=== PATIENT | female | born 1945 | race Caucasian/White ===

== ENCOUNTER 2020-06-15 09:00 | Emergency (ER) | payer MEDICARE, SELFPAY ==
[2020-06-15 09:00] VITALS: BP 127/81; PULSE 63; RESP 22; TEMP 36.5; O2SAT 90; BMI 26.9
[2020-06-15 09:20] VITALS: O2SAT 92
--- NOTE | 2020-06-15 09:21 | EKG12_ITS ---
Test Reason : SOB Blood Pressure : / mmHG Vent. Rate : 063 BPM Atrial Rate : 063 BPM P-R Int : 148 ms QRS Dur : 082 ms QT Int : 420 ms P-R-T Axes : 050 058 032 degrees QTc Int : 429 ms Normal sinus rhythm Normal ECG Confirmed by JULY DRUMMOND, WHIT ([id number]), medical transcription editor KAE FULTON ([id number]) on 06/23/2020 10:18:44 AM Referred By: SALLY Confirmed By:WHIT MCDOWELL MD
--- NOTE | 2020-06-15 09:26 | ED.VIS.GEN ---
History of Present Illness Chief Complaint: Shortness of Breath Informant: Patient Narrative: 74-year-old female with past medical history of hypertension and hypothyroidism presents with concern for worsening shortness of breath. Patient was diagnosed with Covid 7 days ago. Began having symptoms 8 days ago. States over the past 2 days she has had worsening shortness of breath. Denies any chest pain, nausea, vomiting, diaphoresis. Patient is a longtime smoker but quit approximately 1 week ago. Past Medical History - Allergies and Home Meds Allergies/Adverse Reactions: Allergies No Known Allergies Allergy (Verified 06/15/20 09:02) Primary Care Physician: Care Physician,No Primary [NON-STAFF] - Prior records reviewed: Yes Past Medical History: - - HTN and hypothyroidism Surgical History: noncontributory Lives: Spouse/ Significant Other Smoking Status: Current every day smoker Alcohol: None Drugs: None Review of Systems General: Reports: Malaise. Denies: Chills, Fever, Sweats Eyes: Denies: Visual changes - bilaterally, Diplopia ENT: Denies: Rhinorrhea, Sore throat Cardiovascular: Denies: Chest pain, Palpitations Respiratory: Reports: Dyspnea, Cough. Denies: Dyspnea on exertion Gastrointestinal: Denies: Abdominal pain, Nausea, Vomiting, Diarrhea, Melena, Hematochezia Genitourinary: Denies: Dysuria, Hematuria, Frequency Musculoskeletal: Denies: Back pain, Extremity Pain Skin: Denies: Rash, Wounds Neurological: Denies: Headache, Weakness, Numbness Physical Exam Vital Signs/Narrative: Vital Signs Temp Pulse Resp BP Pulse Ox 06/15/20 09:00 97.7 F L 63 22 H 127/81 H 90 Inital Vital Signs reviewed: Yes General: Well nourished, Well developed, No Acute Distress Head: Normocephalic, Atraumatic Eyes: Perrl, EOMI ENT: Moist mucous membranes, No rhinorrhea Neck: Supple, Nontender Cardiovascular: Regular rate, Regular rhythm, No murmurs Respiratory: No distress, CTA bilaterally, Chest nontender Abdomen: Soft, Nontender, Nondistended, Normal bowel sounds Back: Nontender, Normal Inspection Extremities: Nontender, No edema Skin: Normal color, No rash Neurological: Alert, Oriented x3, Cranial nerves II-XII grossly intact, Normal Strength, Normal Sensation Psychological: Normal affect, Normal Mood Diagnostic/Tx/Re-eval Chest X-Ray - ED: 1 View, Read by ED Physician, Read by Radiologist, - - Bilateral infiltrates worse on the right. - Rhythm Strip Rhythm Strip: Sinus Rhythm Rate: 63 Ectopy: None - EKG Initial EKG Interpretation: Sinus Rhythm - Normal sinus rhythm at 63 bpm. NM interval 148 ms. QTC of 429 ms. No evidence of ST elevation or depression at this time. - Medical Decision Making Patient appears well and nontoxic. SPO2 of approximately 92-94 at rest. When patient is ambulated she desaturates to 87%. Placed on 2 L nasal cannula. Patient feeling much improved. CRP is elevated. Patient has known Covid. Troponin negative with a nonischemic EKG. Chest x-ray interpreted by myself shows bilateral infiltrates. Radiology concurs. Patient given Decadron in the emergency department. Patient will be given home oxygen at 2 L. Asked to follow-up with her primary care provider. Asked to return for new or worsening symptoms. Patient agreeable and discharged home in stable condition. Impression: 1. COVID 19 2. Hypoxemia ED Disposition - Plan for ED Patient: Disposition: Home or Assisted Living Instructions: Coronavirus Disease 2019 (COVID-19): Overview Prescriptions: Dexamethasone [Decadron] 6 mg PO DAILY 7 Days #7 tab Prescription Printed Referrals: Paulette Grimes MD [Primary Care Provider] - 2 Days
[2020-06-15 09:50] LABS: Absolute Neutrophil Count 4.3 X10^3/uL (2.0-7.7); Basophil# 0.01 X10^3/uL; Basophil% 0.2 % (0-1); Hematocrit 39.9 % (37-47); Hemoglobin 13.7 g/dL (12.0-15.0); Lymphocyte % 7.9 % (19-41); Mean Corp Hgb Conc 34.3 g/dL (32-36); Mean Corpuscular Hgb 29.6 pg (27.0-32.0); Mean Corpuscular Volume 86.2 fL (81-99); Mean Platelet Vol. 10.8 fl (6.2-12.0); Monocyte% 7.9 % (0-10); NRBC Flagged by Analyzer 0 % (0-5); Neutrophil # 4.26 X10^3/uL (2.7-7.7); Neutrophil % 83.8 % (47-70); POSITIVE DIFFERENTIAL YES; Platelet Count 222 K/mm3 (150-450); RBC Distribution Width CV 13.5 % (11.6-14.6); RBC Distribution Width SD 42.6 fl (35.1-43.9); Red Blood Count 4.63 M/mm3 (4.2-5.4); White Blood Count 5.1 K/mm3 (4.4-11.0)
--- NOTE | 2020-06-15 09:50 | RAD_ITS ---
STUDY: X-RAY CHEST REASON FOR EXAM: Female, 74 years old. INCREASED SOB. PATIENT WAS DIAGNOSES WITH COVID LAST WEEK. TECHNIQUE: Single AP portable view of the chest. COMPARISON: None. FINDINGS: EKG electrodes are seen. There is evidence of a patchy infiltrates in the peripheral distribution more prominent on the right side. This involves both the upper and lower lobes. Follow-up is recommended. There is no demonstrated pleural abnormality. Normal size heart. Normal mediastinum and greta. Normal visualized pulmonary arteries. There is atherosclerotic tortuosity of the aortic arch and descending thoracic aorta. There are diffuse degenerative changes of the visualized thoracic spine. Normal visualized ribs, clavicles, and shoulders. There is no demonstrated abnormality of the visualized soft tissue structures of the upper abdomen. RAD/Chest 1 View (Portable) IMPRESSION: Bilateral patchy infiltrates in a peripheral distribution worse on the right side. Follow-up is recommended. Electronically Signed: Oswaldo Laws, at 10:19 EST , Service support ,
[2020-06-15 09:51] LABS: Differential Indicated SCAN CRITERIA MET
[2020-06-15 10:09] LABS: ALB/GLOB Ratio 0.8 RATIO (0.9-2.4); AST(SGOT) 50 U/L (15-37); Alanine Aminotransfer ALT/SGPT 25 U/L (13-56); Alkaline Phosphatase 60 U/L (45-117); Anion Gap 7 (5-15); BUN 9 mg/dL (7-18); BUN/Creat Ratio 13.1 RATIO (10-20); Calcium,Total 8.3 mg/dL (8.5-10.1); Chloride 108 mmol/L (98-107); Creatinine, Serum 0.68 mg/dL (0.55-1.02); EST Glomerular Filtration Rate 89 mL/min (>60); Est Glom Filt Rate - Afr Amer 107 mL/min (>60); Estimated Creatinine Clearance 34.91 ml/min; Globulin 3.9 g/dL (2.2-4.2); Glucose 121 mg/dL (74-106); Protein, Total 6.9 g/dL (6.4-8.2); Sodium Level 138 mmol/L (136-145)
[2020-06-15 11:21] VITALS: O2SAT 91
--- NOTE | 2020-06-15 11:50 | CM.ED ---
Social Work Consult: Home Oxygen Informant: Dr. Damian Telephone call to patient room. Patient agreeable to have home oxygen set up through [facility] and educated to contact [facility] when patient discharges. Order faxed to [facility]. Telephone call to [facility] to update on patient discharge to home with oxygen. Delivery personal on stand-by for patient phone call. PLAN: Discharge to home with oxygen. Isis CHRISTIAN, REYNALDO
[2020-06-15] MEDS: dexAMETHasone 10 MG/ML Vial 6 MG IV (12:06)
[2020-06-15 12:07] VITALS: PULSE 65; PULSE 67; RESP 17; RESP 18; O2SAT 96
--- NOTE | 2020-06-16 15:50 | CASEMGMT ---
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 MERRY OKEEFE inquired of pt how she has been doing. She states, I'm not doing very good even with the oxygen on. Pt reports that even at rest she can barely keep my oxygen level up to 90% and states currently it is 87%. She also reports that with ambulation, it drops down to as low as 70%. She states her did have someone picker/puller the Decadron today and she has taken that. MERRY OKEEFE strongly advised pt to return to the ER to be re-evaluated and explained to pt that oxygen level is dangerously low and concerns of resp distress. Pt asked this RN MALDONADO if she could wait until tomorrow to come return to the ER and also stated, I don't want to have to get admitted. MERRY OKEEFE strongly advised pt to come to ER today and informed pt to discuss her concerns about admission with the ER doctor. Pt voices understanding. Meka BURGESS RN, CM
--- NOTE | 2020-06-17 13:22 | CASEMGMT ---
MERRY OKEEFE COVID follow-up: Call placed to pt at this time. Pt states she is about the same as yesterday. She states she did not go to the ER last evening. She reports that she continues to have difficulty keeping up my oxygen level, stating it has mostly been maintaining around 89-90% with O2 @ 2 L/M @ rest and states still gets really SOB when walking. She states she is not sure how low the oxygen level has been going today while ambulating. Pt states, It's no worse today than yesterday. Pt voices she is afraid and feeling frustrated. Pt had several questions about treatment options and inquires can't they just give some kind of antibiotic therapy. Upon further discussion, pt clarifies wants to know about treatment w/antibodies. MERRY OKEEFE answered pt's questions and explained that Convalescent plasma and anti-viral tx of Remdesivir may be treatment options for those who qualify for them but these are done only as an In-patient and that she would need to be re-evaluated in ER and further discussion about options of treatment could be discussed at that time. She states her is home w/her. She states he also was ill w/COVID but he is starting to improve. MERRY OKEEFE advised pt again to return to the ER for further evaluation d/t on-going SOB. Pt states she is not sure what she is going to do yet, but appreciates MERRY OKEEFE calling to check on her. Pt was also advised to contact her PCP for f/u appt. She states she thinks he may be on vacation, but she is not sure. MERRY OKEEFE encouraged her to call the office, as they most likely will have someone covering for her PCP if so. Meka BURGESS RN, CM
== END 2020-06-15 12:39 | disposition home or self-care (01) ==
PROVIDERS: Emergency Provider Emergency Medicine; PCP Internal Medicine
DX: U07.1 COVID-19 (principal); R09.02 Hypoxemia; I10 Essential (primary) hypertension; E03.9 Hypothyroidism, unspecified; Z79.82 Long term (current) use of aspirin; Z79.899 Other long term (current) drug therapy; Z87.891 Personal history of nicotine dependence
CPT/HCPCS: 71045; 80053; 84484; 85025; 86140; 93005; 96374; 99284

== ENCOUNTER 2020-06-17 14:57 | Inpatient (IN) | payer MEDICARE, SELFPAY ==
[2020-06-17] VITALS (12 sets, daily range): BP systolic 101–136; BP diastolic 58–76; PULSE 63–70; RESP 18–32; TEMP 36.6–37.1; O2SAT 85–96; BMI 26.9; BMI 17.0; BMI 26.2
--- NOTE | 2020-06-17 15:27 | EKG12_ITS ---
Test Reason : DYSRHYTHMIA Blood Pressure : / mmHG Vent. Rate : 067 BPM Atrial Rate : 067 BPM P-R Int : 106 ms QRS Dur : 082 ms QT Int : 418 ms P-R-T Axes : -06 052 023 degrees QTc Int : 441 ms Sinus rhythm with short OH Otherwise normal ECG Confirmed by JULY DRUMMOND, WHIT ([id number]), film and video editor KAE FULTON ([id number]) on 06/23/2020 9:46:47 A M Referred By: CHRISTOS Confirmed By:WHIT MCDOWELL MD
--- NOTE | 2020-06-17 15:28 | ED.DCSUM_ITS ---
History of Present Illness Chief Complaint: Shortness of Breath Informant: Patient Onset: Days - 9 Narrative: Covid +9 days ago with onset of fever at that time. had symptoms the day prior. History of COPD with tobacco history, she states she stopped smoking when symptoms started. No fever for the past 4 to 5 days. Cough with mild sputum since then. Increasing dyspnea. She was seen 2 days ago in the ED evaluated, sent home per protocol with oxygen therapy and steroids. Symptoms have worsened since then. Denies chest pains or abdominal pain. States dyspnea is worse. EMS was contacted, reported pulse ox in the 80s on her 2 L she is currently on 5 L. She denies any respiratory distress. She did take her Decadron today. Denies any loss of taste or smell, states had mild diarrhea. Prior similar symptoms: Yes Past Medical History - Allergies and Home Meds Allergies/Adverse Reactions: Allergies No Known Allergies Allergy (Verified 06/17/20 15:05) Primary Care Physician: Paulette Grimes MD [Primary Care Provider] - Past Medical History: - - Hypertension, COPD, hyperlipidemia, hypothyroidism Surgical History: noncontributory Smoking Status: Former smoker Review of Systems General: Denies: Chills, Fever, Sweats Eyes: Denies: Visual changes - bilaterally, Diplopia ENT: Denies: Rhinorrhea, Sore throat Cardiovascular: Denies: Chest pain, Palpitations Respiratory: Reports: Dyspnea, Cough. Denies: Dyspnea on exertion Gastrointestinal: Denies: Abdominal pain, Nausea, Vomiting, Diarrhea, Melena, Hematochezia Genitourinary: Denies: Dysuria, Hematuria, Frequency Musculoskeletal: Denies: Back pain, Extremity Pain Skin: Denies: Rash, Wounds Neurological: Denies: Headache, Weakness, Numbness Physical Exam Vital Signs/Narrative: Vital Signs Temp Pulse Resp BP Pulse Ox 06/17/20 15:01 98 F 70 18 136/70 H 85 06/17/20 14:58 98 F 70 18 136/70 H 85 Inital Vital Signs reviewed: Yes General: Well nourished, Well developed, No Acute Distress, - - Currently on 5 L nasal cannula. Head: Normocephalic, Atraumatic Eyes: Perrl, EOMI ENT: Moist mucous membranes, No rhinorrhea Neck: Supple, Nontender Cardiovascular: Regular rate, Regular rhythm, No murmurs Respiratory: No distress, CTA bilaterally, Chest nontender. Negative for: Retractions Abdomen: Soft, Nontender, Nondistended, Normal bowel sounds Back: Nontender, Normal Inspection Extremities: Nontender, No edema Skin: Normal color, No rash Neurological: Alert, Oriented x3, Cranial nerves II-XII grossly intact, Normal Strength, Normal Sensation Psychological: Normal affect, Normal Mood Diagnostic/Tx/Re-eval Clinical Impression(s) from Imaging Studies Chest X-Ray 06/17/20 16:00 IMPRESSION: Stable bilateral hazy opacities suspicious for pneumonia. Consider typical and atypical etiologies. Electronically Signed: Annette Ford MD at 16:42 EST Tel , Service support , Abnormal Lab Results 06/17/20 06/17/20 06/17/20 15:45 15:45 15:45 WBC 6.1 RBC 4.86 Hgb 14.0 Hct 42.1 MCV 86.6 MCH 28.8 MCHC 33.3 RDW Std Deviation 42.3 RDW Coeff of Silvano 13.4 Plt Count 272 MPV 9.2 Immature Gran % (Auto) 0.700 Neut % (Auto) 80.0 H Lymph % (Auto) 10.9 L Hutchinson % (Auto) 7.9 Eos % (Auto) 0.2 Baso % (Auto) 0.3 Absolute Neuts (auto) 4.8 Absolute Lymphs (auto) 0.66 L Nucleated RBC % 0 PT 13.4 INR 1.1 APTT 25.3 D-Dimer Quant (PE/DVT) Specimen Type Sample Site pH Bicarbonate Actual Total CO2 Base Excess O2 Saturation ABG pCO2 ABG pO2 Mauri Test O2 Delivery Device Liter Flow Sodium 140 Potassium 3.6 Chloride 107 Carbon Dioxide 25.0 Anion Gap 8 BUN 15 Creatinine 0.64 Estim Creat Clear Calc 34.91 Est GFR (MDRD) Af Amer 116 Est GFR (MDRD) Non-Af 96 BUN/Creatinine Ratio 23.4 H Glucose 102 Calcium 8.8 Total Bilirubin 0.70 AST 33 ALT 27 Alkaline Phosphatase 66 C-React Prot Ext Range 63.50 H Total Protein 7.0 Albumin 2.9 L Globulin 4.1 Albumin/Globulin Ratio 0.7 L 06/17/20 06/17/20 15:45 16:31 WBC RBC Hgb Hct MCV MCH MCHC RDW Std Deviation RDW Coeff of Silvano Plt Count MPV Immature Gran % (Auto) Neut % (Auto) Lymph % (Auto) Hutchinson % (Auto) Eos % (Auto) Baso % (Auto) Absolute Neuts (auto) Absolute Lymphs (auto) Nucleated RBC % PT INR APTT D-Dimer Quant (PE/DVT) 1.50 H* Specimen Type ART Sample Site R Radial pH 7.46 H Bicarbonate Actual 23.1 Total CO2 24 Base Excess -1 O2 Saturation 97 ABG pCO2 32.8 L ABG pO2 86 Mauri Test Positive O2 Delivery Device Cannula Liter Flow 5.0 Sodium Potassium Chloride Carbon Dioxide Anion Gap BUN Creatinine Estim Creat Clear Calc Est GFR (MDRD) Af Amer Est GFR (MDRD) Non-Af BUN/Creatinine Ratio Glucose Calcium Total Bilirubin AST ALT Alkaline Phosphatase C-React Prot Ext Range Total Protein Albumin Globulin Albumin/Globulin Ratio - Medical Decision Making Patient currently on 5 L of oxygen no respiratory distress. Positive Covid 9 days ago. Seen 2 days ago failing outpatient home therapy with oxygen. She took her steroid Decadron today. Work-up initiated stable labs, chest x-ray notes similar changes with Covid pneumonia 2 days ago. I spoke with hospitalist Dr. Caldera for admission for further management. D-dimer was obtained and eleva yusuf, CT scan ordered and pending for the floor. Discussed will hold antibiotics at this time due to Covid pneumonia. ED Disposition - Plan for ED Patient: Disposition: [facility] Diagnosis: COVID-19 virus infection, Hypoxemia Referrals: Paulette Grimes MD [Primary Care Provider] -
[2020-06-17 15:53] LABS: Absolute Lymphocyte Count 0.66 X10^3/uL (0.83-4.51); Absolute Neutrophil Count 4.8 X10^3/uL (2.0-7.7); Basophil# 0.02 X10^3/uL; Basophil% 0.3 % (0-1); Eosinophil# 0.01 X10^3/uL; Eosinophils% 0.2 % (0-5); Hematocrit 42.1 % (37-47); Lymphocyte # 0.66 X10^3/ul (4.0); Lymphocyte % 10.9 % (19-41); Mean Corp Hgb Conc 33.3 g/dL (32-36); Mean Corpuscular Hgb 28.8 pg (27.0-32.0); Mean Corpuscular Volume 86.6 fL (81-99); Mean Platelet Vol. 9.2 fl (6.2-12.0); Monocyte# 0.48 X10^3/uL; Monocyte% 7.9 % (0-10); NRBC Flagged by Analyzer 0 % (0-5); Neutrophil # 4.84 X10^3/uL (2.7-7.7); Platelet Count 272 K/mm3 (150-450); RBC Distribution Width CV 13.4 % (11.6-14.6); RBC Distribution Width SD 42.3 fl (35.1-43.9); Red Blood Count 4.86 M/mm3 (4.2-5.4); White Blood Count 6.1 K/mm3 (4.4-11.0)
--- NOTE | 2020-06-17 16:00 | RAD_ITS ---
STUDY: X-RAY CHEST REASON FOR EXAM: Female, 74 years old. SOB. COVID POSITIVE LAST SUNDAY. TECHNIQUE: Single AP portable view of the chest. COMPARISON: 06/15/2020. FINDINGS: No pleural effusion. Moderate hazy opacities in the lungs bilaterally. Mild interstitial prominence in the lung bases. No significant change from the prior study. Normal size heart. Normal mediastinum and greta. Normal visualized pulmonary arteries. Normal visualized aortic arch and descending thoracic aorta. Normal visualized thoracic spine. Normal visualized ribs, clavicles, and shoulders. There is no demonstrated abnormality of the visualized soft tissue structures of the upper abdomen. RAD/Chest 1 View (Portable) IMPRESSION: Stable bilateral hazy opacities suspicious for pneumonia. Consider typical and atypical etiologies. Electronically Signed: Annette Ford MD at 16:42 EST Tel , Service support ,
[2020-06-17 16:07] LABS: International Normalized Ratio 1.1; Partial Thromboplast Time 25.3 Seconds (24.1-36.2); Prothrombin Time (Protime)PT. 13.4 SECONDS (11.7-14.9)
[2020-06-17 16:08] LABS: ALB/GLOB Ratio 0.7 RATIO (0.9-2.4); AST(SGOT) 33 U/L (15-37); Alanine Aminotransfer ALT/SGPT 27 U/L (13-56); Albumin, Serum 2.9 g/dL (3.2-5.0); Alkaline Phosphatase 66 U/L (45-117); Anion Gap 8 (5-15); BUN 15 mg/dL (7-18); BUN/Creat Ratio 23.4 RATIO (10-20); Calcium,Total 8.8 mg/dL (8.5-10.1); Chloride 107 mmol/L (98-107); Creatinine, Serum 0.64 mg/dL (0.55-1.02); EST Glomerular Filtration Rate 96 mL/min (>60); Est Glom Filt Rate - Afr Amer 116 mL/min (>60); Estimated Creatinine Clearance 34.91 ml/min; Globulin 4.1 g/dL (2.2-4.2); Glucose 102 mg/dL (74-106); Potassium 3.6 mmol/L (3.5-5.1); Sodium Level 140 mmol/L (136-145)
--- NOTE | 2020-06-17 16:26 | PCM.HP.STD ---
Problem List (1) Pneumonia due to COVID-19 virus Status: Acute (2) Hypoxemia Status: Acute (3) Suspected chronic obstructive pulmonary disease based on initial evaluation Status: Suspected (4) Tobacco use Status: Chronic (5) HTN (hypertension) Status: Chronic Qualifiers: Hypertension type: essential hypertension Qualified Code(s): I10 - Essential (primary) hypertension (6) HLD (hyperlipidemia) Status: Chronic Qualifiers: Hyperlipidemia type: unspecified Qualified Code(s): E78.5 - Hyperlipidemia, unspecified (7) Hypothyroidism Status: Chronic Qualifiers: Hypothyroidism type: unspecified Qualified Code(s): E03.9 - Hypothyroidism, unspecified History of Present Illness Date of Admission: 06/17/20 Chief Complaint: Fever, cough, dyspnea, mild diarrhea, body aches, malaise x 1.5 weeks The patient is a 74 y/o F w/ PMHx: Suspected underlying chronic COPD, Tobacco use, HTN, HLD, Hypothyroidism who presents to the [facility] ED on 06/17/20 with history of onset COVID type symptoms including fever, chills, body aches, diarrhea, cough and dyspnea with + COVID testing ~ 9 days prior with lessening diarrhea and resolution of her fever x 4-5 days; however, she notes her oxygenation has been steadily worsening with recent ED presentation 2 days prior with discharge on 2L NC as well as steroids but despite this she has worsened with oxygenation at home in the 80s on the 2L NC prompting ED return. She notes her is also ill but less severe and his symptoms started just prior to hers. Work-up in the ED included T 98, heart 70, BP 136/70, respiratory rate 18, initially 85% on 2 L nasal cannula with improvement to 94% on 5 L nasal cannula, CBC with WC 6.1, hemoglobin 14, platelet 272 with lymphopenia, coags with PT 13.4, INR 1.1, PTT 25.3, D-dimer requested and discussed with ED physician and returned 1.50 with CTPA obtained on route to [facility] floor, ABG with pH 7.46, PCO2 32.8, PO2 86 on 5 L nasal cannula, CMP not marked appearing, EKG with SR without acute evidence of ischemia, CXR with stable BL hazy opacities consistent with COVID PNA, CTPA as noted pending upon admission. Past Medical History Past Medical History (Chronic Problems): Chronic Problems Tobacco use (Chronic) HTN (hypertension) (Chronic) HLD (hyperlipidemia) (Chronic) Hypothyroidism (Chronic) Allergies No Known Allergies Allergy (Verified 06/17/20 15:05) Home Medications: Ambulatory Orders Medication Instructions Recorded Aspirin E.C. [Ecotrin] 325 mg PO DAILY@0800 02/08/17 Atenolol [Tenormin (beta candelaria)] 25 mg PO DAILY 02/08/17 Atorvastatin Calcium [Lipitor] 20 mg PO DAILY 02/08/17 Levothyroxine [Synthroid] 88 mcg PO DAILY 02/08/17 Dexamethasone [Decadron] 6 mg PO DAILY 7 Days #7 tab 06/15/20 Surgical History: - - Tonsillectomy, right ear mastoid surgery x2, D&C. 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 Tobacco Use: Cigarettes Alcohol: None Drugs: None - *Family History Maternal History Items: Heart Disease Paternal History Items: Diabetes Review of Systems Constitutional: Reports: Anorexia, Chills, Fever, Malaise, Weakness, Fatigue. Denies: Weight Change HEENT: Denies: Head Aches, Sinus Congestion, Sinus Drainage Cardiovascular: Denies: Chest Pain, Chest Pressure, Chest Tightness, Light Headedness, Orthopnea, Palpitations, Syncope Respiratory: Reports: Cough, Shortness of Breath, Shortness of breath at rest, Shortness of breath upon exertion. Denies: Sputum production, Wheezing Gastrointestinal: Reports: Diarrhea. Denies: Abdominal Pain, Nausea, Vomiting Genitourinary: Denies: Dysuria Musculoskeletal: Reports: Joint Pain, Muscle pain. Denies: Joint Tenderness Skin: Denies: Rash, Wounds Neurological: Denies: Numbness, Tingling, Focal weakness Psychiatric: Denies: Anxiety, Depression, Homicidal Ideations, Suicidal Ideations Hematologic/ Lymphatic: Denies: Easy Bruising, Easy Bleeding VTE Information - Inpt Only VTE Present on Admission: No VTE Mechan Device Prophylaxis: SCD's VTE Pharm Prophylaxis ordered?: Yes Patient Problems: Active and Suspected Problems COVID-19 virus infection (Acute) Hypoxemia (Acute) Subjective: Patient seated upright in the ED bed, fatigued and ill-appearing, no obvious distress. Objective: Physical Examination: General: awake, alert, oriented x 3 and cooperative, seated upright in the ED bed, fatigued and ill-appearing but no obvious distress. Skin: normal color, turgor, no icterus, cyanosis. HEENT: AT/NC, EOMI, PERRLA, dry MM, no carotid bruits or JVD noted. Lungs: Diminished breath sounds, greater bases, decreased effort but no obvious distress, no rales, ronchi or wheezing. Heart: Regular rate and rhythm; no gallop, rub audible. Abdomen: soft, thin habitus, NTTP, ND, mildly hyperactive BS, no HSM. Extremities: no cyanosis, clubbing, or edema. Neurological: patient awake, alert, oriented as noted; cognitive function intact; pupils equally reactive to light and accomodation; cranial nerves II-XII grossly normal, moving all 4 extremities, no focal deficits, strength moderately to severely globally decreased secondary to acute presentation. Psychiatric: affect appears fatigued, ill-appearing, no acute evidence of depressive or anxiety feelings. - Physical Exam Vitals/I&O's: Vital Signs Temp Pulse Resp BP Pulse Ox 98 F 64 20 H 125/76 H 95 06/17/20 16:01 06/17/20 16:01 06/17/20 16:01 06/17/20 16:01 06/17/20 16:01 Oxygen Flow Rate (L/min) 5 Oxygen Delivery Method Nasal Cannula Weight: 138 lb Body Mass Index (BMI) 26.9 Laboratory Results 06/17/20 15:45: WBC 6.1, RBC 4.86, Hgb 14.0, Hct 42.1, MCV 86.6, MCH 28.8, MCHC 33.3, RDW Std Deviation 42.3, RDW Coeff of Silvano 13.4, Plt Count 272, MPV 9.2, Immature Gran % (Auto) 0.700, Neut % (Auto) 80.0 H, Lymph % (Auto) 10.9 L, [place] % (Auto) 7.9, Eos % (Auto) 0.2, Baso % (Auto) 0.3, Absolute Neuts (auto) 4.8, Absolute Lymphs (auto) 0.66 L, Nucleated RBC % 0 06/17/20 15:45: PT 13.4, INR 1.1, APTT 25.3 06/17/20 15:45: Sodium 140, Potassium 3.6, Chloride 107, Carbon Dioxide 25.0, Anion Gap 8, BUN 15, Creatinine 0.64, Estim Creat Clear Calc 34.91, Est GFR (MDRD) Af Amer 116, Est GFR (MDRD) Non-Af 96, BUN/Creatinine Ratio 23.4 H, Glucose 102, Calcium 8.8, Total Bilirubin 0.70, AST 33, ALT 27, Alkaline Phosphatase 66, C-React Prot Ext Range 63.50 H, Total Protein 7.0, Albumin 2.9 L, Globulin 4.1, Albumin/Globulin Ratio 0.7 L Assessment/Plan All Active Problems COVID-19 virus infection (Acute) Hypoxemia (Acute) Pneumonia due to COVID-19 virus (Acute) The patient is a 74 y/o F w/ PMHx: Suspected underlying chronic COPD, Tobacco use, HTN, HLD, Hypothyroidism who presents to the [facility] ED on 06/17/20 with history of onset COVID type symptoms including fever, chills, body aches, diarrhea, cough and dyspnea with + COVID testing ~ 9 days prior with lessening diarrhea and resolution of her fever x 4-5 days; however, she notes her oxygenation has been steadily worsening. 1. Acute Hypoxia, Worsening secondary to Acute Bilateral Pneumonia secondary to Acute Viral Syndrome, COVID-19: Will admit to the COVID unit on telemetry, will maintain on oxygen with wean as tolerated to room air but do suspect likely need for increased oxygenation, continue PRN albuterol, HOB, IS parameters w/ pending sputum cultures, respiratory viral panel and urine antigens, will obtain procalcitonin, CRP, CPK, Ferritin, LDH, trend d-dimer and COVID panel labs per protocol, continue IV decadron, obtain T+S, request ID consultation for consideration remdesivir and convalescent plasma. If continues to worsen may require air Vo versus BiPAP as well as possible transition to the ICU and/or pulmonary consultation. CTPA pending upon admission. 2. Suspected underlying chronic COPD: Would benefit once resolved from close follow-up with pulmonary medicine, pulmonary function studies, in interim HOB, encourage IS, encourage tobacco cessation. 3. Hypertension: Continue home regimen including atenolol with hold parameters, PRN hydralazine. 4. Hyperlipidemia: Continue home statin regimen. 5. Hypothyroidism: Continue home synthroid regimen. 6. Tobacco Abuse: Encouraged cessation, inpatient consultation per RT, NR if desired. 7. DVT prophylaxis: SCDs, Lovenox. 8. CODE status: Given patient presentation, underlying pulmonary disease and tobacco use with worsening status, discussed CODE status at length including difference between FULL code, DNR-CCA and DNR-CC status. Following discussions about the differences in these status, requested Full Code status. She is amenable to attempts with airvo and BIPAP prior to intubation. Updated and discussed her status with her also. Advanced Care Planning Face to Face Time: 16 minutes. Inpatient E&M: 17431 Init Hosp L3 Procedures: 28677 Advncd Care Plan 30 Min
[2020-06-17 16:35] LABS: Allen Test Positive; Base Excess -1 mmol/L (-2 to +2); Bicarbonate 23.1 mmol/L (22-26); Blood Gas Specimen Type ART; O2 Delivery Device Cannula; PO2 86 mmHG (75-100); SITE R Radial; SO2 97 % (95-99); Total Carbon Dioxide 24 mmol/L; pCO2 32.8 mmHg (35-45); pH 7.46 (7.35-7.45)
--- NOTE | 2020-06-17 17:35 | CT_ITS ---
STUDY: CTA CHEST REASON FOR EXAM: Female, 74 years old. Hypoxia, + COVID last week, elevated D-dimer, former smoker, hypertension, COPD. RADIATION DOSAGE (If Supplied By Facility): CTDIvol = ( 5.86 ) mGy, DLP = ( 223.68 ) mGycm TECHNIQUE: The examination was performed with the intravenous administration of IV 75mL [id number]-370. Post-processing of the angiographic images was performed, with multiplanar reformation and 3D reconstruction. Individualized dose optimization techniques were used for this CT. COMPARISON: None. FINDINGS: The heart and pericardium are normal. The aorta is normal in caliber. No aneurysm or dissection. There is no mediastinal mass or adenopathy. There is no evidence of pulmonary embolus. There is no pleural effusion. Extensive bilateral groundglass opacity greater in the lung periphery. Visualized abdomen is unremarkable. There is no osseous abnormality. CT/CTA Chest W/WO Contrast IMPRESSION: 1. No pulmonary embolism or arterial dissection. 2. Diffuse groundglass opacities suspicious for Covid pneumonia. Electronically Signed: Annette Ford MD at 19:02 EST Tel , Service support ,
--- NOTE | 2020-06-17 18:17 | PCS.PANDOC ---
PANDEMIC DOCUMENTATION INITIATED: Date: 06/17/2020 Time: 1814
[2020-06-17 21:56] LABS: Ferritin 114 ng/mL (8-252); LDH 510 U/L (84-246); Magnesium 2.1 mg/dL (1.6-2.6)
[2020-06-17] MEDS: Ondansetron 4 MG/2 ML Vial IV (22:52)
[2020-06-17] MEDS: Enoxaparin 30 MG/0.3 ML Syringe SC (22:52)
[2020-06-17] MEDS: dexAMETHasone 10 MG/ML Vial 6 MG IV (22:53)
[2020-06-17] MEDS: Acetaminophen 325 MG Tablet 650 MG PO (22:53)
[2020-06-17] MEDS: MELATONIN 3 MG TABLET PO (22:59)
[2020-06-17 23:15] LABS: Procalcitonin < 0.01 ng/mL (0.00-0.09)
[2020-06-18] VITALS (18 sets, daily range): BP systolic 85–125; BP diastolic 48–87; PULSE 63–81; RESP 16–30; TEMP 36.6–37.1; O2SAT 90–96; BMI 25.7
[2020-06-18 07:13] LABS: Absolute Lymphocyte Count 0.41 X10^3/uL (0.83-4.51); Absolute Neutrophil Count 4.4 X10^3/uL (2.0-7.7); Hematocrit 40.4 % (37-47); Hemoglobin 13.1 g/dL (12.0-15.0); Lymphocyte # 0.41 X10^3/ul (4.0); Lymphocyte % 8.2 % (19-41); Mean Corp Hgb Conc 32.4 g/dL (32-36); Mean Corpuscular Hgb 28.3 pg (27.0-32.0); Mean Corpuscular Volume 87.3 fL (81-99); Mean Platelet Vol. 9.2 fl (6.2-12.0); Monocyte# 0.17 X10^3/uL; Monocyte% 3.4 % (0-10); NRBC Flagged by Analyzer 0 % (0-5); Neutrophil # 4.36 X10^3/uL (2.7-7.7); Neutrophil % 87.8 % (47-70); POSITIVE DIFFERENTIAL YES; Platelet Count 305 K/mm3 (150-450); RBC Distribution Width CV 13.5 % (11.6-14.6); RBC Distribution Width SD 43.2 fl (35.1-43.9); Red Blood Count 4.63 M/mm3 (4.2-5.4)
[2020-06-18 07:14] LABS: Differential Indicated SCAN CRITERIA MET
[2020-06-18 07:44] LABS: D-Dimer Quantitative (DVT/PE) 1.49 FEU/ug/m (0.27-0.49)
[2020-06-18 07:51] LABS: ALB/GLOB Ratio 0.8 RATIO (0.9-2.4); AST(SGOT) 27 U/L (15-37); Alanine Aminotransfer ALT/SGPT 26 U/L (13-56); Albumin, Serum 2.8 g/dL (3.2-5.0); Alkaline Phosphatase 67 U/L (45-117); Anion Gap 9 (5-15); BUN 18 mg/dL (7-18); BUN/Creat Ratio 21.6 RATIO (10-20); Calcium,Total 8.3 mg/dL (8.5-10.1); Chloride 107 mmol/L (98-107); Creatinine, Serum 0.84 mg/dL (0.55-1.02); EST Glomerular Filtration Rate 71 mL/min (>60); Est Glom Filt Rate - Afr Amer 85 mL/min (>60); Estimated Creatinine Clearance 41.57 ml/min; Ferritin 116 ng/mL (8-252); Globulin 3.5 g/dL (2.2-4.2); Glucose 176 mg/dL (74-106); Potassium 4.2 mmol/L (3.5-5.1); Protein, Total 6.3 g/dL (6.4-8.2); Sodium Level 139 mmol/L (136-145)
--- NOTE | 2020-06-18 08:15 | PN_ITS ---
Patient Problems: Active and Suspected Problems COVID-19 virus infection (Acute) Hypoxemia (Acute) Pneumonia due to COVID-19 virus (Acute) Suspected chronic obstructive pulmonary disease based on initial evaluation (Suspected) Reason for Visit: Acute Hypoxic respiratory failure COVID-19 pneumonitis Subjective: 74-year-old lady presented with progressive shortness of breath patient had apparently tested positive for Covid 9 days prior to her admission. CT of the chest obtained on admission demonstrated diffuse groundglass opacities suspicious for Covid pneumonia. Admitted to regular nursing for further management Objective: GENERAL: cooperative dyspneic at rest HEENT: Atraumatic; EYES; Anicteric, Normal Conjunctiva NECK; supple, normal thyroid, RESPIRATORY: Diminished to auscultation CARDIOVASCULAR: Regular S1 S2, GI: soft, normoactive bowel sounds, : No Renal angle tenderness; EXTREMITIES: No edema, no clubbing, MUSCULOSKELETAL: no muscle waisting NEURO: Awake; no lateralizing signs. SKIN: No Rash PSYCH; Flat affect Vitals/I&O's: Vital Signs Temp Pulse Resp BP Pulse Ox 97.8 F 72 25 H 102/82 H 93 06/18/20 06:26 06/18/20 07:13 06/18/20 06:42 06/18/20 06:26 06/18/20 07:22 Oxygen Flow Rate (L/min) 6 Oxygen Delivery Method Nasal Cannula Weight: 59.7 kg Body Mass Index (BMI) 26.2 Intake and Output for Last 24 Hours 06/16/20 06/17/20 06/18/20 23:59 23:59 23:59 Output Total 200 / 200 Balance -200 / -200 Microbiology Past 72 Hours 06/18/20 06:30 Urine, Clean Catch Legionella Antigen - Final 06/18/20 06:30 Urine, Clean Catch Streptococcus pneumoniae Antigen (M - Final 06/17/20 23:15 Mucosa - Oral Respiratory Panel (PCR) - Final Laboratory Results 06/17/20 15:45: WBC 6.1, RBC 4.86, Hgb 14.0, Hct 42.1, MCV 86.6, MCH 28.8, MCHC 33.3, RDW Std Deviation 42.3, RDW Coeff of Silvano 13.4, Plt Count 272, MPV 9.2, Immature Gran % (Auto) 0.700, Neut % (Auto) 80.0 H, Lymph % (Auto) 10.9 L, [place] % (Auto) 7.9, Eos % (Auto) 0.2, Baso % (Auto) 0.3, Absolute Neuts (auto) 4.8, Absolute Lymphs (auto) 0.66 L, Nucleated RBC % 0 06/17/20 15:45: PT 13.4, INR 1.1, APTT 25.3 06/17/20 15:45: Sodium 140, Potassium 3.6, Chloride 107, Carbon Dioxide 25.0, Anion Gap 8, BUN 15, Creatinine 0.64, Estim Creat Clear Calc 34.91, Est GFR (MDRD) Af Amer 116, Est GFR (MDRD) Non-Af 96, BUN/Creatinine Ratio 23.4 H, Glucose 102, Calcium 8.8, Total Bilirubin 0.70, AST 33, ALT 27, Alkaline Phosphatase 66, C-React Prot Ext Range 63.50 H, Total Protein 7.0, Albumin 2.9 L , Globulin 4.1, Albumin/Globulin Ratio 0.7 L 06/17/20 15:45: D-Dimer Quant (PE/DVT) 1.50 H* 06/17/20 15:45: Magnesium 2.1, Ferritin 114, Lactate Dehydrogenase 510 H 06/17/20 16:31: Specimen Type ART, Sample Site R Radial, pH 7.46 H, Bicarbonate Actual 23.1, Total CO2 24, Base Excess -1, O2 Saturation 97, ABG pCO2 32.8 L, ABG pO2 86, Mauri Test Positive, O2 Delivery Device Cannula, Liter Flow 5.0 06/17/20 21:55: Procalcitonin < 0.01 06/17/20 21:55: Blood Type A POSITIVE, Antibody Screen NEGATIVE 06/18/20 06:45: WBC 5.0, RBC 4.63, Hgb 13.1, Hct 40.4, MCV 87.3, MCH 28.3, MCHC 32.4, RDW Std Deviation 43.2, RDW Coeff of Silvano 13.5, Plt Count 305, MPV 9.2, Immature Gran % (Auto) 0.600, Neut % (Auto) 87.8 H, Lymph % (Auto) 8.2 L, [place] % (Auto) 3.4, Eos % (Auto) 0.0, Baso % (Auto) 0.0, Absolute Neuts (auto) 4.4, Absolute Lymphs (auto) 0.41 L, Nucleated RBC % 0 06/18/20 06:45: Sodium 139, Potassium 4.2, Chloride 107, Carbon Dioxide 23.0, Anion Gap 9, BUN 18, Creatinine 0.84, Estim Creat Clear Calc 41.57, Est GFR (MDRD) Af Amer 85, Est GFR (MDRD) Non-Af 71, BUN/Creatinine Ratio 21.6 H, Glucose 176 H, Calcium 8.3 L, Ferritin 116, Total Bilirubin 0.70, AST 27, ALT 26, Alkaline Phosphatase 67, C-React Prot Ext Range 76.40 H, Total Protein 6.3 L , Albumin 2.8 L, Globulin 3.5, Albumin/Globulin Ratio 0.8 L 06/18/20 06:45: D-Dimer Quant (PE/DVT) 1.49 H* 06/18/20 06:45: Procalcitonin Pending Current Medications Acetaminophen (Acetaminophen 325 Mg Tablet) 650 mg PO Q6H PRN PRN PRN Reason: Pain Score 1-10/Temp > 100.7 F Last Admin: 06/17/20 22:53 Dose: 650 mg Documented by: Al Hydroxide/Mg Hydroxide (Mag Hydrox/Al Hydrox/Simeth 30 Ml Udc) 30 ml PO Q6H PRN PRN PRN Reason: Gastric Burning Albuterol Sulfate (Albuterol Ih 8.5 Gm (Proair) Inhaler (200 Puffs)) 4 - 8 puff INHALATION Q4H PRN PRN PRN Reason: Dyspnea, wheezing Dexamethasone Sodium Phosphate (Dexamethasone 10 Mg/Ml Vial) 6 mg IV DAILY [facility] Last Admin: 06/17/20 22:53 Dose: 6 mg Documented by: Enoxaparin Sodium (Enoxaparin 30 Mg/0.3 Ml Syringe) 30 mg SC BID [facility] Last Admin: 06/17/20 22:52 Dose: 30 mg Documented by: Guaifenesin (Guaifenesin 10 Ml Udc (200mg/10ml)) 20 ml PO Q4H PRN PRN PRN Reason: COUGH Hydralazine HCl (Hydralazine 20 Mg/Ml Vial) 10 mg IV Q4H PRN PRN PRN Reason: SBP > 160 Magnesium Hydroxide (Magnesium Hydroxide 30 Ml Udc) 30 ml PO DAILY PRN PRN PRN Reason: Constipation Melatonin (Melatonin 3 Mg Tablet) 3 mg PO QHS PRN PRN PRN Reason: INSOMNIA Last Admin: 06/17/20 22:59 Dose: 3 mg Documented by: Morphine Sulfate (Morphine 2 Mg/Ml Syringe) 2 mg IV Q3H PRN PRN PRN Reason: Pain Score 6-10 Nicotine (Nicotine 14 Mg Patch) 14 mg TD DAILY PRN PRN PRN Reason: Nicotine Craving Nitroglycerin (Nitroglycerin (Inpatient Use) 0.4 Mg Tab.Subl) 0.4 mg SUBLINGUAL Q5M PRN PRN Reason: CARDIAC/CHEST PAIN Ondansetron HCl (Ondansetron 4 Mg/2 Ml Vial) 4 mg IV Q8H PRN PRN PRN Reason: NAUSEA/VOMITING Last Admin: 06/17/20 22:52 Dose: 4 mg Documented by: Oxycodone HCl (Oxycodone 5 Mg Tablet) 5 mg PO Q4H PRN PRN PRN Reason: Pain Score 4-5 Prochlorperazine Edisylate (Prochlorperazine 10 Mg/2 Ml Vial) 5 mg IV Q4H PRN PRN PRN Reason: Breakthrough nausea/vomiting Psyllium Hydrophilic Mucilloid (Psyllium 1 Packet) 1 packet PO DAILY PRN PRN PRN Reason: Constipation Senna/Docusate Sodium (Senna/Docusate Sodium 1 Tablet) 2 tablet PO BID PRN PRN PRN Reason: Constipation Sodium Chloride (0.9% Saline Lock 10 Ml Syringe) 10 - 40 ml IV UD PRN PRN Reason: SALINE FLUSH Throat Lozenges (Benzocaine/Menthol 1 Lozenge) 1 lozenge MUCOUS MEM Q2H PRN PRN PRN Reason: SORE THROAT STROKE Vital Signs/Narrative: Vital Signs Temp Pulse Resp BP Pulse Ox 06/18/20 07:22 93 06/18/20 07:13 72 06/18/20 06:42 70 25 H 92 06/18/20 06:26 97.8 F 69 16 102/82 H 90 06/18/20 05:35 98.7 F 63 25 H 97/53 L 95 06/18/20 04:40 98.4 F 64 30 H 85/50 L 95 Medical Necessity - Tobacco Use Smoking Status: Current every day smoker Tobacco Use: Cigarettes Assessment/Plan All Active Problems COVID-19 virus infection (Acute) Hypoxemia (Acute) Pneumonia due to COVID-19 virus (Acute) 74-year-old lady presented with progressive shortness of breath patient had apparently tested positive for Covid 9 days prior to her admission. CT of the chest obtained on admission demonstrated diffuse groundglass opacities suspicious for Covid pneumonia. Admitted to regular nursing for further management 1. Acute Hypoxic respiratory failure secondary to COVID-19 pneumonitis ?Patient was first diagnosed 9 days prior to her admission. Admitted to regular nursing floor started on Decadron supplemental oxygen bronchodilator treatment incentive spirometry treatment with consultation placed to ID 2. Suspected underlying COPD ?Aerosol treatment in addition to steroid 3. Hypertension - Blood pressure controlled, home medications continued with dose adjustment as needed 4. Dyslipidemia -Patient is on statin therapy, continued at home dose 5. Hypothyroidism - Patient is on levothyroxine home dose continued 6. Tobacco dependence - Counseled on cessation, offered nicotine patch for tobacco cravings 7. DVT prophylaxis Lovenox. Inpatient E&M: [id number] [facility] L3
[2020-06-18] MEDS: dexAMETHasone 10 MG/ML Vial 6 MG IV (09:06)
[2020-06-18] MEDS: Enoxaparin 30 MG/0.3 ML Syringe SC ×2 (09:07→21:32)
[2020-06-18 10:07] LABS: Procalcitonin 0.05 ng/mL (0.00-0.09)
--- NOTE | 2020-06-18 13:07 | PCM.NTREPORT ---
Nutrition Therapy Report - History Nutrition Services has been consulted to:: Manage nutrient details of diet order Current diet / nutrition support order:: Cardiac - Anthropometric Measurements Height:: 5 ft Weight:: 59.7 kg Body Mass Index (BMI):: 25.7 - Relevant Labs Relevant Labs:: Neut % (Auto) 87.8 % (47-70) H 06/18/20 06:45 Lymph % (Auto) 8.2 % (19-41) L 06/18/20 06:45 Absolute Lymphs (auto) 0.41 X10^3/uL (0.83-4.51) L 06/18/20 06:45 D-Dimer Quant (PE/DVT) 1.49 FEU/ug/m (0.27-0.49) H* 06/18/20 06:45 BUN/Creatinine Ratio 21.6 RATIO (10-20) H 06/18/20 06:45 Glucose 176 mg/dL (74-106) H 06/18/20 06:45 Calcium 8.3 mg/dL (8.5-10.1) L 06/18/20 06:45 Lactate Dehydrogenase 510 U/L (84-246) H 06/17/20 15:45 C-React Prot Ext Range 76.40 mg/L (0.0-3.0) H 06/18/20 06:45 Total Protein 6.3 g/dL (6.4-8.2) L 06/18/20 06:45 Albumin 2.8 g/dL (3.2-5.0) L 06/18/20 06:45 Albumin/Globulin Ratio 0.8 RATIO (0.9-2.4) L 06/18/20 06:45 - Assessment Food / Nutrition-Related History:: Pt states Regular diet at home - po intake has been not real good x 2 wks and UBW: 62.596 kg - wt loss of 4.7% x same time frame. PO intake poor on MS2 - agreeable to ONS w/ meals for increased nutrition if consumed. On steroid which may elevate gluc levels. [ End ] - Nutrition Diagnosis Problem / Etiology / Signs & Symptoms (PES):: Pt with suboptimal po intake r/t COVID aeb 4.7% wt loss and poor po intake x 2 wks. Pt agreeable to ONS at meals for increased nutrition if consumed. [ End ] Evidence of Malnutrition Exists:: Yes Severe PCM:: Acute Illness - Nutrition Intervention Nutrition Prescription:: [id number] latrell / 60-70 gm pro / day - Food / Nutrient Delivery Interventions Summary of nutrition intervention:: Will change diet to liberal Regular to help maximize pt po intake. Will order Ensure Enlive w/ meals for increased nutrition if consumed. [ End ] Nutrition support ordered as / adjusted to:: Ordered 4 oz chocolate ensure enlive w/ meals. Ordered diet change to liberal Regular - MNT Monitoring Further MNT monitoring and evaluation required?: Yes MNT Follow-up in:: 3-5 days - if questions, call RD/LD at [phone]
--- NOTE | 2020-06-18 13:43 | CASEMGMT ---
RN CM called patient in room for initial transition planning/care coordination assessment. RN CM introduced self and role at [facility]. Patient is alert and oriented. Patient willing to participate in assessment and is able to answer all questions appropriately. Care providers, pharmacy, and demographics verified. Patient wishes to discharge home, denies need for home health at this time. Patient states she has no further needs or concerns at this time. CM to follow for discharge planning needs that may arise. PCP: [place] Specialists: None Preferred Pharmacy: [facility] Insurance: [facility] Prescription Benefit: yes Living Will/HPOA: none LNOK: hsuband Living Arrangements: Patient lives with in a single story home with 2 steps to enter. Patient states she is independent at home. Patient states she has someone that can bring supplies and groceries Transportation: self/. DME/HHC: Patient has home oxygen setup with [employer] for 2 lpm with portability and concentrator. Covid testing completed at [facility] [place]. Disposition Plan: Patient to discharge home with family support and follow-up plans in place. Dayna BURGESS, RN, CM
--- NOTE | 2020-06-18 16:13 | PCM.HP.ID ---
Problem List (1) COVID-19 virus infection Status: Acute Reason for Consult: covid Consulted by: Dr. Rendon History of Present Illness: The patient is a 74 year old F with sx starting 06/07 with headache, cough, congestion, then developed aches, diarrhea, dyspnea. with sx starting a few days prior. He was (+), then she tested (+) 06/07. Came to ED with worsening sx. Started on dex. Full ROS performed and neg except as noted above. - Medical History Past Medical History (Chronic Problems): Chronic Problems Tobacco use (Chronic) HTN (hypertension) (Chronic) HLD (hyperlipidemia) (Chronic) Hypothyroidism (Chronic) Allergies/Adverse Reactions: Allergies No Known Allergies Allergy (Verified 06/17/20 15:05) Home Medications: Ambulatory Orders Medication Instructions Recorded Aspirin E.C. [Ecotrin] 325 mg PO DAILY@0800 02/08/17 Atenolol [Tenormin (beta candelaria)] 25 mg PO DAILY 02/08/17 Atorvastatin Calcium [Lipitor] 20 mg PO DAILY 02/08/17 Levothyroxine [Synthroid] 88 mcg PO DAILY 02/08/17 Dexamethasone [Decadron] 6 mg PO DAILY 7 Days #7 tab 06/15/20 - Social History SMOKING STATUS:: Current every day smoker Vital Signs Temp Pulse Resp BP Pulse Ox 98.4 F 78 18 116/69 94 06/18/20 15:33 06/18/20 15:33 06/18/20 15:33 06/18/20 15:33 06/18/20 15:33 Oxygen Flow Rate (L/min) 8 Oxygen Delivery Method Nasal Cannula Weight: 59.7 kg Body Mass Index (BMI) 25.7 Microbiology Past 72 Hours 06/17/20 23:00 Gram Stain - Final Sputum, Expectorated/Coughed Respiratory Culture - Preliminary Appears to be normal respiratory jose luis. Further studies to follow. 06/18/20 06:30 Legionella Antigen - Final Urine, Clean Catch Streptococcus pneumoniae Antigen (M - Final 06/17/20 23:15 Respiratory Panel (PCR) - Final Mucosa - Oral Laboratory Tests Past 24 Hrs 06/17/20 06/17/20 06/17/20 15:45 15:45 16:31 WBC RBC Hgb Hct MCV MCH MCHC RDW Std Deviation RDW Coeff of Silvano Plt Count MPV Immature Gran % (Auto) Neut % (Auto) Lymph % (Auto) [place] % (Auto) Eos % (Auto) Baso % (Auto) Absolute Neuts (auto) Absolute Lymphs (auto) Nucleated RBC % D-Dimer Quant (PE/DVT) 1.50 H* Specimen Type ART Sample Site R Radial pH 7.46 H Bicarbonate Actual 23.1 Total CO2 24 Base Excess -1 O2 Saturation 97 ABG pCO2 32.8 L ABG pO2 86 Mauri Test Positive O2 Delivery Device Cannula Liter Flow 5.0 Sodium Potassium Chloride Carbon Dioxide Anion Gap BUN Creatinine Estim Creat Clear Calc Est GFR (MDRD) Af Amer Est GFR (MDRD) Non-Af BUN/Creatinine Ratio Glucose Calcium Magnesium 2.1 Ferritin 114 Total Bilirubin AST ALT Alkaline Phosphatase Lactate Dehydrogenase 510 H C-React Prot Ext Range Total Protein Albumin Globulin Albumin/Globulin Ratio Procalcitonin Blood Type Antibody Screen 06/17/20 06/17/20 06/18/20 21:55 21:55 06:45 WBC 5.0 RBC 4.63 Hgb 13.1 Hct 40.4 MCV 87.3 MCH 28.3 MCHC 32.4 RDW Std Deviation 43.2 RDW Coeff of Silvano 13.5 Plt Count 305 MPV 9.2 Immature Gran % (Auto) 0.600 Neut % (Auto) 87.8 H Lymph % (Auto) 8.2 L [place] % (Auto) 3.4 Eos % (Auto) 0.0 Baso % (Auto) 0.0 Absolute Neuts (auto) 4.4 Absolute Lymphs (auto) 0.41 L Nucleated RBC % 0 D-Dimer Quant (PE/DVT) Specimen Type Sample Site pH Bicarbonate Actual Total CO2 Base Excess O2 Saturation ABG pCO2 ABG pO2 Mauri Test O2 Delivery Device Liter Flow Sodium Potassium Chloride Carbon Dioxide Anion Gap BUN Creatinine Estim Creat Clear Calc Est GFR (MDRD) Af Amer Est GFR (MDRD) Non-Af BUN/Creatinine Ratio Glucose Calcium Magnesium Ferritin Total Bilirubin AST ALT Alkaline Phosphatase Lactate Dehydrogenase C-React Prot Ext Range Total Protein Albumin Globulin Albumin/Globulin Ratio Procalcitonin < 0.01 Blood Type A POSITIVE Antibody Screen NEGATIVE 06/18/20 06/18/20 06/18/20 06:45 06:45 06:45 WBC RBC Hgb Hct MCV MCH MCHC RDW Std Deviation RDW Coeff of Silvano Plt Count MPV Immature Gran % (Auto) Neut % (Auto) Lymph % (Auto) [place] % (Auto) Eos % (Auto) Baso % (Auto) Absolute Neuts (auto) Absolute Lymphs (auto) Nucleated RBC % D-Dimer Quant (PE/DVT) 1.49 H* Specimen Type Sample Site pH Bicarbonate Actual Total CO2 Base Excess O2 Saturation ABG pCO2 ABG pO2 Mauri Test O2 Delivery Device Liter Flow Sodium 139 Potassium 4.2 Chloride 107 Carbon Dioxide 23.0 Anion Gap 9 BUN 18 Creatinine 0.84 Estim Creat Clear Calc 41.57 Est GFR (MDRD) Af Amer 85 Est GFR (MDRD) Non-Af 71 BUN/Creatinine Ratio 21.6 H Glucose 176 H Calcium 8.3 L Magnesium Ferritin 116 Total Bilirubin 0.70 AST 27 ALT 26 Alkaline Phosphatase 67 Lactate Dehydrogenase C-React Prot Ext Range 76.40 H Total Protein 6.3 L Albumin 2.8 L Globulin 3.5 Albumin/Globulin Ratio 0.8 L Procalcitonin 0.05 Blood Type Antibody Screen - Other Studies Radiology: [] reviewed Other Studies: [] Route of nutrition/ use of supplements: [] Nutritional Intake: [] IV Site: [] Lyons Catheter: [] - Physical Exam General: Alert, Oriented x3, Cooperative, No apparent distress HEENT: Atraumatic, PERRLA, EOMI Neck: Supple, No Nodes Lungs: Diminished Cardiovascular: Regular rate, Regular Rhythm Abdomen: Soft, Non Tender, Non-Distended Extremities: No edema Skin: No rashes IV Site: Peripheral, without redness Musculoskeletal: No Tenderness to Palpation of Joints or Extremities Neurological: Cranial nerves II-XII grossly intact - Assessment/Plan Antibiotics: [] Assessment/Plan: [] Active and Suspected Problems COVID-19 virus infection (Acute) Hypoxemia (Acute) Pneumonia due to COVID-19 virus (Acute) Suspected chronic obstructive pulmonary disease based on initial evaluation (Suspected) covid with hypoxia - on dex, lovenox 30mg bid. Will start remdesivir. also with covid, improving. Will change dex to po. CT neg for PE. D-dimer was 1.5. Sx started 12/7. On 8L. Will follow, thank you
[2020-06-19] VITALS (10 sets, daily range): BP systolic 116–125; BP diastolic 65–75; PULSE 54–74; RESP 18–24; TEMP 36.4–37; O2SAT 92–95
--- NOTE | 2020-06-19 07:28 | PN_ITS ---
Patient Problems: Active and Suspected Problems COVID-19 virus infection (Acute) Hypoxemia (Acute) Pneumonia due to COVID-19 virus (Acute) Suspected chronic obstructive pulmonary disease based on initial evaluation (Suspected) Reason for Visit: Acute Hypoxic respiratory failure COVID-19 pneumonitis Subjective: Patient was started on remdesivir by infectious disease the day prior. Patient remains on high flow oxygen Objective: GENERAL: Patient is dyspneic at rest HEENT: Atraumatic; EYES; Anicteric, Normal Conjunctiva NECK; supple, normal thyroid, RESPIRATORY: Diminished to auscultation CARDIOVASCULAR: Regular S1 S2, GI: soft, normoactive bowel sounds, : No Renal angle tenderness; EXTREMITIES: No edema, no clubbing, MUSCULOSKELETAL: no muscle waisting NEURO: Awake; no lateralizing signs. SKIN: No Rash PSYCH; patient appears anxious Vitals/I&O's: Vital Signs Temp Pulse Resp BP Pulse Ox 98.5 F 74 24 H 118/67 92 06/19/20 03:45 06/19/20 03:45 06/19/20 04:02 06/19/20 03:45 06/19/20 03:45 Oxygen Flow Rate (L/min) 7 Oxygen Delivery Method Nasal Cannula Weight: 60.4 kg Body Mass Index (BMI) 25.7 Intake and Output for Last 24 Hours 06/17/20 06/18/20 06/19/20 23:59 23:59 23:59 Intake Total 650 / 650 240 / 240 Output Total 700 / 700 Balance -50 / -50 240 / 240 Microbiology Past 72 Hours 06/17/20 23:00 Sputum, Expectorated/Coughed Gram Stain - Final 06/17/20 23:00 Sputum, Expectorated/Coughed Respiratory Culture - Preliminary Appears to be normal respiratory jose luis. Further studies to follow. 06/18/20 06:30 Urine, Clean Catch Legionella Antigen - Final 06/18/20 06:30 Urine, Clean Catch Streptococcus pneumoniae Antigen (M - Final 06/17/20 23:15 Mucosa - Oral Respiratory Panel (PCR) - Final Laboratory Results 06/18/20 06:45: Sodium 139, Potassium 4.2, Chloride 107, Carbon Dioxide 23.0, Anion Gap 9, BUN 18, Creatinine 0.84, Estim Creat Clear Calc 41.57, Est GFR (MDRD) Af Amer 85, Est GFR (MDRD) Non-Af 71, BUN/Creatinine Ratio 21.6 H, Glucose 176 H, Calcium 8.3 L, Ferritin 116, Total Bilirubin 0.70, AST 27, ALT 26, Alkaline Phosphatase 67, C-React Prot Ext Range 76.40 H, Total Protein 6.3 L , Albumin 2.8 L, Globulin 3.5, Albumin/Globulin Ratio 0.8 L 06/18/20 06:45: D-Dimer Quant (PE/DVT) 1.49 H* 06/18/20 06:45: Procalcitonin 0.05 Current Medications Acetaminophen (Acetaminophen 325 Mg Tablet) 650 mg PO Q6H PRN PRN PRN Reason: Pain Score 1-10/Temp > 100.7 F Last Admin: 06/17/20 22:53 Dose: 650 mg Documented by: Al Hydroxide/Mg Hydroxide (Mag Hydrox/Al Hydrox/Simeth 30 Ml Udc) 30 ml PO Q6H PRN PRN PRN Reason: Gastric Burning Albuterol Sulfate (Albuterol Ih 8.5 Gm (Proair) Inhaler (200 Puffs)) 4 - 8 puff INHALATION Q4H PRN PRN PRN Reason: Dyspnea, wheezing Dexamethasone (Dexamethasone 4 Mg Tablet) 6 mg PO DAILY ANA Stop: 06/26/20 10:01 Enoxaparin Sodium (Enoxaparin 30 Mg/0.3 Ml Syringe) 30 mg SC BID ANA Last Admin: 06/18/20 21:32 Dose: 30 mg Documented by: Guaifenesin (Guaifenesin 10 Ml Udc (200mg/10ml)) 20 ml PO Q4H PRN PRN PRN Reason: COUGH Hydralazine HCl (Hydralazine 20 Mg/Ml Vial) 10 mg IV Q4H PRN PRN PRN Reason: SBP > 160 Remdesivir 100 mg/ Sodium (Chloride) 250 mls @ 125 mls/hr IV DAILY ANA; Protocol Stop: 06/22/20 11:59 Magnesium Hydroxide (Magnesium Hydroxide 30 Ml Udc) 30 ml PO DAILY PRN PRN PRN Reason: Constipation Melatonin (Melatonin 3 Mg Tablet) 3 mg PO QHS PRN PRN PRN Reason: INSOMNIA Last Admin: 06/17/20 22:59 Dose: 3 mg Documented by: Morphine Sulfate (Morphine 2 Mg/Ml Syringe) 2 mg IV Q3H PRN PRN PRN Reason: Pain Score 6-10 Nicotine (Nicotine 14 Mg Patch) 14 mg TD DAILY PRN PRN PRN Reason: Nicotine Craving Nitroglycerin (Nitroglycerin (Inpatient Use) 0.4 Mg Tab.Subl) 0.4 mg SUBLINGUAL Q5M PRN PRN Reason: CARDIAC/CHEST PAIN Ondansetron HCl (Ondansetron 4 Mg/2 Ml Vial) 4 mg IV Q8H PRN PRN PRN Reason: NAUSEA/VOMITING Last Admin: 06/17/20 22:52 Dose: 4 mg Documented by: Oxycodone HCl (Oxycodone 5 Mg Tablet) 5 mg PO Q4H PRN PRN PRN Reason: Pain Score 4-5 Prochlorperazine Edisylate (Prochlorperazine 10 Mg/2 Ml Vial) 5 mg IV Q4H PRN PRN PRN Reason: Breakthrough nausea/vomiting Psyllium Hydrophilic Mucilloid (Psyllium 1 Packet) 1 packet PO DAILY PRN PRN PRN Reason: Constipation Senna/Docusate Sodium (Senna/Docusate Sodium 1 Tablet) 2 tablet PO BID PRN PRN PRN Reason: Constipation Sodium Chloride (0.9% Saline Lock 10 Ml Syringe) 10 - 40 ml IV UD PRN PRN Reason: SALINE FLUSH Throat Lozenges (Benzocaine/Menthol 1 Lozenge) 1 lozenge MUCOUS MEM Q2H PRN PRN PRN Reason: SORE THROAT STROKE Vital Signs/Narrative: Vital Signs Temp Pulse Resp BP Pulse Ox 06/19/20 04:02 24 H 06/19/20 03:45 98.5 F 74 20 H 118/67 92 Medical Necessity - Tobacco Use Smoking Status: Current every day smoker Tobacco Use: Cigarettes Assessment/Plan All Active Problems COVID-19 virus infection (Acute) Hypoxemia (Acute) Pneumonia due to COVID-19 virus (Acute) 74-year-old lady presented with progressive shortness of breath patient had apparently tested positive for Covid 9 days prior to her admission. CT of the chest obtained on admission demonstrated diffuse groundglass opacities suspicious for Covid pneumonia. Admitted to regular nursing for further management 1. Acute Hypoxic respiratory failure secondary to COVID-19 pneumonitis ?Patient was first diagnosed 9 days prior to her admission. Admitted to regular nursing floor started on Decadron supplemental oxygen bronchodilator treatment incentive spirometry treatment with consultation placed to ID ?06/19/2020; Patient was started on remdesivir by infectious disease the day prior; Patient remains on high flow oxygen 2. Suspected underlying COPD ?Aerosol treatment in addition to steroid 3. Hypertension - Blood pressure controlled, home medications continued with dose adjustment as needed 4. Dyslipidemia -Patient is on statin therapy, continued at home dose 5. Hypothyroidism - Patient is on levothyroxine home dose continued 6. Tobacco dependence - Counseled on cessation, offered nicotine patch for tobacco cravings 7. DVT prophylaxis Lovenox. Inpatient E&M: [id number] Subs Hosp L3
[2020-06-19 08:18] LABS: Absolute Lymphocyte Count 0.86 X10^3/uL (0.83-4.51); Absolute Neutrophil Count 4.8 X10^3/uL (2.0-7.7); Basophil# 0.01 X10^3/uL; Basophil% 0.2 % (0-1); Eosinophil# 0.01 X10^3/uL; Eosinophils% 0.2 % (0-5); Hematocrit 41.6 % (37-47); Hemoglobin 13.3 g/dL (12.0-15.0); Lymphocyte # 0.86 X10^3/ul (4.0); Lymphocyte % 14.1 % (19-41); Mean Corpuscular Hgb 28.1 pg (27.0-32.0); Mean Corpuscular Volume 87.8 fL (81-99); Mean Platelet Vol. 9.2 fl (6.2-12.0); Monocyte# 0.35 X10^3/uL; Monocyte% 5.8 % (0-10); NRBC Flagged by Analyzer 0 % (0-5); Neutrophil # 4.82 X10^3/uL (2.7-7.7); Neutrophil % 79.2 % (47-70); Platelet Count 285 K/mm3 (150-450); RBC Distribution Width CV 13.3 % (11.6-14.6); RBC Distribution Width SD 43.3 fl (35.1-43.9); Red Blood Count 4.74 M/mm3 (4.2-5.4); White Blood Count 6.1 K/mm3 (4.4-11.0)
[2020-06-19 08:52] LABS: ALB/GLOB Ratio 0.7 RATIO (0.9-2.4); AST(SGOT) 28 U/L (15-37); Alanine Aminotransfer ALT/SGPT 28 U/L (13-56); Albumin, Serum 2.7 g/dL (3.2-5.0); Alkaline Phosphatase 65 U/L (45-117); Anion Gap 5 (5-15); BUN 19 mg/dL (7-18); BUN/Creat Ratio 27.9 RATIO (10-20); Calcium,Total 8.5 mg/dL (8.5-10.1); Chloride 107 mmol/L (98-107); Creatinine, Serum 0.68 mg/dL (0.55-1.02); EST Glomerular Filtration Rate 89 mL/min (>60); Est Glom Filt Rate - Afr Amer 108 mL/min (>60); Estimated Creatinine Clearance 34.91 ml/min; Globulin 4.1 g/dL (2.2-4.2); Glucose 79 mg/dL (74-106); Magnesium 2.1 mg/dL (1.6-2.6); Potassium 3.6 mmol/L (3.5-5.1); Protein, Total 6.8 g/dL (6.4-8.2); Sodium Level 140 mmol/L (136-145)
[2020-06-19] MEDS: Enoxaparin 30 MG/0.3 ML Syringe SC ×2 (08:57→20:33)
[2020-06-19] MEDS: dexAMETHasone 4 MG Tablet 6 MG PO (08:58)
[2020-06-20] VITALS (8 sets, daily range): BP systolic 126–137; BP diastolic 69–89; PULSE 61–79; RESP 16–20; TEMP 36.1–36.9; O2SAT 93–96
[2020-06-20 06:54] LABS: Absolute Lymphocyte Count 0.89 X10^3/uL (0.83-4.51); Absolute Neutrophil Count 6.3 X10^3/uL (2.0-7.7); Basophil# 0.02 X10^3/uL; Basophil% 0.3 % (0-1); Eosinophil# 0.02 X10^3/uL; Eosinophils% 0.3 % (0-5); Hematocrit 38.9 % (37-47); Hemoglobin 12.8 g/dL (12.0-15.0); Lymphocyte # 0.89 X10^3/ul (4.0); Lymphocyte % 11.5 % (19-41); Mean Corp Hgb Conc 32.9 g/dL (32-36); Mean Corpuscular Hgb 28.7 pg (27.0-32.0); Mean Corpuscular Volume 87.2 fL (81-99); Mean Platelet Vol. 9.3 fl (6.2-12.0); Monocyte# 0.42 X10^3/uL; Monocyte% 5.4 % (0-10); NRBC Flagged by Analyzer 0 % (0-5); Neutrophil % 81.7 % (47-70); Platelet Count 301 K/mm3 (150-450); RBC Distribution Width CV 13.4 % (11.6-14.6); RBC Distribution Width SD 43.3 fl (35.1-43.9); Red Blood Count 4.46 M/mm3 (4.2-5.4); White Blood Count 7.7 K/mm3 (4.4-11.0)
[2020-06-20 07:26] LABS: ALB/GLOB Ratio 0.7 RATIO (0.9-2.4); AST(SGOT) 24 U/L (15-37); Alanine Aminotransfer ALT/SGPT 23 U/L (13-56); Albumin, Serum 2.5 g/dL (3.2-5.0); Alkaline Phosphatase 60 U/L (45-117); Anion Gap 7 (5-15); BUN 19 mg/dL (7-18); BUN/Creat Ratio 31.9 RATIO (10-20); Calcium,Total 8.3 mg/dL (8.5-10.1); Chloride 108 mmol/L (98-107); EST Glomerular Filtration Rate 104 mL/min (>60); Est Glom Filt Rate - Afr Amer 126 mL/min (>60); Estimated Creatinine Clearance 34.91 ml/min; Globulin 3.7 g/dL (2.2-4.2); Glucose 78 mg/dL (74-106); Potassium 3.5 mmol/L (3.5-5.1); Protein, Total 6.2 g/dL (6.4-8.2); Sodium Level 140 mmol/L (136-145)
--- NOTE | 2020-06-20 07:33 | PN_ITS ---
Patient Problems: Active and Suspected Problems COVID-19 virus infection (Acute) Hypoxemia (Acute) Pneumonia due to COVID-19 virus (Acute) Suspected chronic obstructive pulmonary disease based on initial evaluation (Suspected) Reason for Visit: Acute Hypoxic respiratory failure COVID-19 pneumonitis Subjective: Patient seen currently on 5 L of oxygen however she appears less dyspneic compared to the previous day. She still remains anxious though Objective: GENERAL: Patient is dyspneic at rest HEENT: Atraumatic; EYES; Anicteric, Normal Conjunctiva NECK; supple, normal thyroid, RESPIRATORY: Diminished to auscultation CARDIOVASCULAR: Regular S1 S2, GI: soft, normoactive bowel sounds, : No Renal angle tenderness; EXTREMITIES: No edema, no clubbing, MUSCULOSKELETAL: no muscle waisting NEURO: Awake; no lateralizing signs. SKIN: No Rash PSYCH; patient appears anxious Vitals/I&O's: Vital Signs Temp Pulse Resp BP Pulse Ox 98.4 F 61 20 H 137/71 H 96 06/20/20 02:28 06/20/20 04:05 06/20/20 02:28 06/20/20 02:28 06/20/20 02:28 Oxygen Flow Rate (L/min) 5 Oxygen Delivery Method Nasal Cannula Weight: 62 kg Body Mass Index (BMI) 25.7 Intake and Output for Last 24 Hours 06/18/20 06/19/20 06/20/20 23:59 23:59 23:59 Intake Total 650 / 650 790 / 790 Output Total 700 / 700 400 / 400 Balance -50 / -50 390 / 390 Microbiology Past 72 Hours 06/17/20 23:00 Sputum, Expectorated/Coughed Gram Stain - Final 06/17/20 23:00 Sputum, Expectorated/Coughed Respiratory Culture - Preliminary Appears to be normal respiratory jose luis. Further studies to follow. 06/18/20 06:30 Urine, Clean Catch Legionella Antigen - Final 06/18/20 06:30 Urine, Clean Catch Streptococcus pneumoniae Antigen (M - Fin al 06/17/20 23:15 Mucosa - Oral Respiratory Panel (PCR) - Final Laboratory Results 06/19/20 08:07: WBC 6.1, RBC 4.74, Hgb 13.3, Hct 41.6, MCV 87.8, MCH 28.1, MCHC 32.0, RDW Std Deviation 43.3, RDW Coeff of Silvano 13.3, Plt Count 285, MPV 9.2, Immature Gran % (Auto) 0.500, Neut % (Auto) 79.2 H, Lymph % (Auto) 14.1 L, [place] % (Auto) 5.8, Eos % (Auto) 0.2, Baso % (Auto) 0.2, Absolute Neuts (auto) 4.8, Absolute Lymphs (auto) 0.86, Nucleated RBC % 0 06/19/20 08:07: Sodium 140, Potassium 3.6, Chloride 107, Carbon Dioxide 28.0, Anion Gap 5, BUN 19 H, Creatinine 0.68, Estim Creat Clear Calc 34.91, Est GFR (MDRD) Af Amer 108, Est GFR (MDRD) Non-Af 89, BUN/Creatinine Ratio 27.9 H, Glucose 79, Calcium 8.5, Magnesium 2.1, Total Bilirubin 0.60, AST 28, ALT 28, Alkaline Phosphatase 65, Total Protein 6.8, Albumin 2.7 L, Globulin 4.1, Albumin/Globulin Ratio 0.7 L 06/20/20 06:40: WBC 7.7, RBC 4.46, Hgb 12.8, Hct 38.9, MCV 87.2, MCH 28.7, MCHC 32.9, RDW Std Deviation 43.3, RDW Coeff of Silvano 13.4, Plt Count 301, MPV 9.3, Immature Gran % (Auto) 0.800, Neut % (Auto) 81.7 H, Lymph % (Auto) 11.5 L, [place] % (Auto) 5.4, Eos % (Auto) 0.3, Baso % (Auto) 0.3, Absolute Neuts (auto) 6.3, Absolute Lymphs (auto) 0.89, Nucleated RBC % 0 06/20/20 06:40: Sodium 140, Potassium 3.5, Chloride 108 H, Carbon Dioxide 25.0, Anion Gap 7, BUN 19 H, Creatinine 0.60, Estim Creat Clear Calc 34.91, Est GFR (MDRD) Af Amer 126, Est GFR (MDRD) Non-Af 104, BUN/Creatinine Ratio 31.9 H, Glucose 78, Calcium 8.3 L, Total Bilirubin 0.60, AST 24, ALT 23, Alkaline Phosphatase 60, Total Protein 6.2 L, Albumin 2.5 L, Globulin 3.7, Albumin/Globulin Ratio 0.7 L Current Medications Acetaminophen (Acetaminophen 325 Mg Tablet) 650 mg PO Q6H PRN PRN PRN Reason: Pain Score 1-10/Temp > 100.7 F Last Admin: 06/17/20 22:53 Dose: 650 mg Documented by: Al Hydroxide/Mg Hydroxide (Mag Hydrox/Al Hydrox/Simeth 30 Ml Udc) 30 ml PO Q6H PRN PRN PRN Reason: Gastric Burning Albuterol Sulfate (Albuterol Ih 8.5 Gm (Proair) Inhaler (200 Puffs)) 4 - 8 puff INHALATION Q4H PRN PRN PRN Reason: Dyspnea, wheezing Dexamethasone (Dexamethasone 4 Mg Tablet) 6 mg PO DAILY [facility] Stop: 06/26/20 10:01 Last Admin: 06/19/20 08:58 Dose: 6 mg Documented by: Enoxaparin Sodium (Enoxaparin 30 Mg/0.3 Ml Syringe) 30 mg SC BID [facility] Last Admin: 06/19/20 20:33 Dose: 30 mg Documented by: Guaifenesin (Guaifenesin 10 Ml Udc (200mg/10ml)) 20 ml PO Q4H PRN PRN PRN Reason: COUGH Hydralazine HCl (Hydralazine 20 Mg/Ml Vial) 10 mg IV Q4H PRN PRN PRN Reason: SBP > 160 Remdesivir 100 mg/ Sodium (Chloride) 250 mls @ 125 mls/hr IV DAILY [facility]; Protocol Stop: 06/22/20 11:59 Last Infusion: 06/19/20 14:24 Dose: Infused Documented by: Magnesium Hydroxide (Magnesium Hydroxide 30 Ml Udc) 30 ml PO DAILY PRN PRN PRN Reason: Constipation Melatonin (Melatonin 3 Mg Tablet) 3 mg PO QHS PRN PRN PRN Reason: INSOMNIA Last Admin: 06/17/20 22:59 Dose: 3 mg Documented by: Morphine Sulfate (Morphine 2 Mg/Ml Syringe) 2 mg IV Q3H PRN PRN PRN Reason: Pain Score 6-10 Nicotine (Nicotine 14 Mg Patch) 14 mg TD DAILY PRN PRN PRN Reason: Nicotine Craving Nitroglycerin (Nitroglycerin (Inpatient Use) 0.4 Mg Tab.Subl) 0.4 mg SUBLINGUAL Q5M PRN PRN Reason: CARDIAC/CHEST PAIN Ondansetron HCl (Ondansetron 4 Mg/2 Ml Vial) 4 mg IV Q8H PRN PRN PRN Reason: NAUSEA/VOMITING Last Admin: 06/17/20 22:52 Dose: 4 mg Documented by: Oxycodone HCl (Oxycodone 5 Mg Tablet) 5 mg PO Q4H PRN PRN PRN Reason: Pain Score 4-5 Prochlorperazine Edisylate (Prochlorperazine 10 Mg/2 Ml Vial) 5 mg IV Q4H PRN PRN PRN Reason: Breakthrough nausea/vomiting Psyllium Hydrophilic Mucilloid (Psyllium 1 Packet) 1 packet PO DAILY PRN PRN PRN Reason: Constipation Senna/Docusate Sodium (Senna/Docusate Sodium 1 Tablet) 2 tablet PO BID PRN PRN PRN Reason: Constipation Sodium Chloride (0.9% Saline Lock 10 Ml Syringe) 10 - 40 ml IV UD PRN PRN Reason: SALINE FLUSH Throat Lozenges (Benzocaine/Menthol 1 Lozenge) 1 lozenge MUCOUS MEM Q2H PRN PRN PRN Reason: SORE THROAT STROKE Vital Signs/Narrative: Vital Signs Pulse 06/20/20 04:05 61 Medical Necessity - Tobacco Use Smoking Status: Current every day smoker Tobacco Use: Cigarettes Assessment/Plan All Active Problems COVID-19 virus infection (Acute) Hypoxemia (Acute) Pneumonia due to COVID-19 virus (Acute) 74-year-old lady presented with progressive shortness of breath patient had apparently tested positive for Covid 9 days prior to her admission. CT of the chest obtained on admission demonstrated diffuse groundglass opacities suspicious for Covid pneumonia. Admitted to regular nursing for further management 1. Acute Hypoxic respiratory failure secondary to COVID-19 pneumonitis ?Patient was first diagnosed 9 days prior to her admission. Admitted to regular nursing floor started on Decadron supplemental oxygen bronchodilator treatment incentive spirometry treatment with consultation placed to ID ?06/19/2020; Patient was started on remdesivir by infectious disease the day prior; Patient remains on high flow oxygen -06/20/2020;Patient seen currently on 5 L of oxygen however she appears less dyspneic compared to the previous day. She still remains anxious though 2. Suspected underlying COPD ?Aerosol treatment in addition to steroid 3. Hypertension - Blood pressure controlled, home medications continued with dose adjustment as needed 4. Dyslipidemia -Patient is on statin therapy, continued at home dose 5. Hypothyroidism - Patient is on levothyroxine home dose continued 6. Tobacco dependence - Counseled on cessation, offered nicotine patch for tobacco cravings 7. DVT prophylaxis Lovenox. Inpatient E&M: 16223 Subs Hosp L2
[2020-06-20] MEDS: Enoxaparin 30 MG/0.3 ML Syringe SC ×2 (08:08→20:15)
[2020-06-20] MEDS: dexAMETHasone 4 MG Tablet 6 MG PO (08:08)
[2020-06-20] MEDS: Senna/Docusate Sodium 1 Tablet 2 TABLET PO (10:41)
--- NOTE | 2020-06-20 16:26 | NURSING ---
Francesca ALVARADO DAUGHTER
[2020-06-21 02:30] VITALS: BP 136/63; PULSE 78; RESP 20; TEMP 36.7; O2SAT 92
[2020-06-21 06:49] LABS: Absolute Lymphocyte Count 0.89 X10^3/uL (0.83-4.51); Absolute Neutrophil Count 6.6 X10^3/uL (2.0-7.7); Basophil# 0.01 X10^3/uL; Basophil% 0.1 % (0-1); Eosinophil# 0.04 X10^3/uL; Eosinophils% 0.5 % (0-5); Hematocrit 39.4 % (37-47); Hemoglobin 12.7 g/dL (12.0-15.0); Lymphocyte # 0.89 X10^3/ul (4.0); Lymphocyte % 11.1 % (19-41); Mean Corp Hgb Conc 32.2 g/dL (32-36); Mean Corpuscular Hgb 27.9 pg (27.0-32.0); Mean Corpuscular Volume 86.4 fL (81-99); Mean Platelet Vol. 9.1 fl (6.2-12.0); Monocyte# 0.45 X10^3/uL; Monocyte% 5.6 % (0-10); NRBC Flagged by Analyzer 0 % (0-5); Neutrophil # 6.58 X10^3/uL (2.7-7.7); Platelet Count 318 K/mm3 (150-450); RBC Distribution Width CV 13.3 % (11.6-14.6); Red Blood Count 4.56 M/mm3 (4.2-5.4)
[2020-06-21 07:20] LABS: ALB/GLOB Ratio 0.8 RATIO (0.9-2.4); AST(SGOT) 31 U/L (15-37); Alanine Aminotransfer ALT/SGPT 27 U/L (13-56); Albumin, Serum 2.5 g/dL (3.2-5.0); Alkaline Phosphatase 65 U/L (45-117); Anion Gap 6 (5-15); BUN 17 mg/dL (7-18); Calcium,Total 8.1 mg/dL (8.5-10.1); Chloride 107 mmol/L (98-107); Creatinine, Serum 0.57 mg/dL (0.55-1.02); EST Glomerular Filtration Rate 110 mL/min (>60); Est Glom Filt Rate - Afr Amer 133 mL/min (>60); Estimated Creatinine Clearance 34.91 ml/min; Globulin 3.3 g/dL (2.2-4.2); Glucose 93 mg/dL (74-106); Potassium 3.5 mmol/L (3.5-5.1); Protein, Total 5.8 g/dL (6.4-8.2); Sodium Level 140 mmol/L (136-145)
[2020-06-21 07:35] VITALS: O2SAT 92
[2020-06-21 08:30] VITALS: BP 127/57; PULSE 74; RESP 18; TEMP 36.4; O2SAT 93
[2020-06-21] MEDS: dexAMETHasone 4 MG Tablet 6 MG PO (09:17)
[2020-06-21] MEDS: Enoxaparin 30 MG/0.3 ML Syringe SC ×2 (09:19→23:13)
[2020-06-21 14:30] VITALS: BP 128/59; PULSE 72; RESP 18; TEMP 36.8; O2SAT 92
--- NOTE | 2020-06-21 15:28 | PN.ID_ITS ---
Patient Problems: Active and Suspected Problems COVID-19 virus infection (Acute) Hypoxemia (Acute) Pneumonia due to COVID-19 virus (Acute) Suspected chronic obstructive pulmonary disease based on initial evaluation (Suspected) Subjective: Feeling better, wants to go home soon, no fever, no n/v/d. - Physical Exam Vitals/I&O's: Vital Signs Temp Pulse Resp BP Pulse Ox 97.6 F L 74 18 127/57 H 93 06/21/20 08:30 06/21/20 08:30 06/21/20 08:30 06/21/20 08:30 06/21/20 08:30 Oxygen Flow Rate (L/min) 3.5 Oxygen Delivery Method Nasal Cannula Weight: 62 kg Body Mass Index (BMI) 25.7 Intake and Output for Last 24 Hours 06/19/20 06/20/20 06/21/20 23:59 23:59 23:59 Intake Total 790 / 790 600 / 600 490 / 490 Output Total 400 / 400 500 / 500 Balance 390 / 390 100 / 100 490 / 490 General: Alert, Cooperative, No apparent distress Lungs: Diminished Cardiovascular: Regular rate, Regular Rhythm Abdomen: Soft, Non Tender, Non-Distended Skin: No rashes Microbiology Past 72 Hours 06/17/20 23:00 Sputum, Expectorated/Coughed Gram Stain - Final 06/17/20 23:00 Sputum, Expectorated/Coughed Respiratory Culture - Final Laboratory Results 06/21/20 06:35: WBC 8.0, RBC 4.56, Hgb 12.7, Hct 39.4, MCV 86.4, MCH 27.9, MCHC 32.2, RDW Std Deviation 42.0, RDW Coeff of Silvano 13.3, Plt Count 318, MPV 9.1, Immature Gran % (Auto) 0.700, Neut % (Auto) 82.0 H, Lymph % (Auto) 11.1 L, Cuming % (Auto) 5.6, Eos % (Auto) 0.5, Baso % (Auto) 0.1, Absolute Neuts (auto) 6.6, Absolute Lymphs (auto) 0.89, Nucleated RBC % 0 06/21/20 06:35: Sodium 140, Potassium 3.5, Chloride 107, Carbon Dioxide 27.0, Anion Gap 6, BUN 17, Creatinine 0.57, Estim Creat Clear Calc 34.91, Est GFR (MDRD) Af Amer 133, Est GFR (MDRD) Non-Af 110, BUN/Creatinine Ratio 30.0 H, Glucose 93, Calcium 8.1 L, Total Bilirubin 0.60, AST 31, ALT 27, Alkaline Phosphatase 65, Total Protein 5.8 L, Albumin 2.5 L, Globulin 3.3, Al bumin/Globulin Ratio 0.8 L Current Medications Acetaminophen (Acetaminophen 325 Mg Tablet) 650 mg PO Q6H PRN PRN PRN Reason: Pain Score 1-10/Temp > 100.7 F Last Admin: 06/17/20 22:53 Dose: 650 mg Documented by: Al Hydroxide/Mg Hydroxide (Mag Hydrox/Al Hydrox/Simeth 30 Ml Udc) 30 ml PO Q6H PRN PRN PRN Reason: Gastric Burning Albuterol Sulfate (Albuterol Ih 8.5 Gm (Proair) Inhaler (200 Puffs)) 4 - 8 puff INHALATION Q4H PRN PRN PRN Reason: Dyspnea, wheezing Dexamethasone (Dexamethasone 4 Mg Tablet) 6 mg PO DAILY [facility] Stop: 06/26/20 10:01 Last Admin: 06/21/20 09:17 Dose: 6 mg Documented by: Enoxaparin Sodium (Enoxaparin 30 Mg/0.3 Ml Syringe) 30 mg SC BID [facility] Last Admin: 06/21/20 09:19 Dose: 30 mg Documented by: Guaifenesin (Guaifenesin 10 Ml Udc (200mg/10ml)) 20 ml PO Q4H PRN PRN PRN Reason: COUGH Hydralazine HCl (Hydralazine 20 Mg/Ml Vial) 10 mg IV Q4H PRN PRN PRN Reason: SBP > 160 Remdesivir 100 mg/ Sodium (Chloride) 250 mls @ 125 mls/hr IV DAILY [facility]; Protocol Stop: 06/22/20 11:59 Last Infusion: 06/21/20 13:38 Dose: Infused Documented by: Magnesium Hydroxide (Magnesium Hydroxide 30 Ml Udc) 30 ml PO DAILY PRN PRN PRN Reason: Constipation Melatonin (Melatonin 3 Mg Tablet) 3 mg PO QHS PRN PRN PRN Reason: INSOMNIA Last Admin: 06/17/20 22:59 Dose: 3 mg Documented by: Morphine Sulfate (Morphine 2 Mg/Ml Syringe) 2 mg IV Q3H PRN PRN PRN Reason: Pain Score 6-10 Nicotine (Nicotine 14 Mg Patch) 14 mg TD DAILY PRN PRN PRN Reason: Nicotine Craving Nitroglycerin (Nitroglycerin (Inpatient Use) 0.4 Mg Tab.Subl) 0.4 mg SUBLINGUAL Q5M PRN PRN Reason: CARDIAC/CHEST PAIN Ondansetron HCl (Ondansetron 4 Mg/2 Ml Vial) 4 mg IV Q8H PRN PRN PRN Reason: NAUSEA/VOMITING Last Admin: 06/17/20 22:52 Dose: 4 mg Documented by: Oxycodone HCl (Oxycodone 5 Mg Tablet) 5 mg PO Q4H PRN PRN PRN Reason: Pain Score 4-5 Prochlorperazine Edisylate (Prochlorperazine 10 Mg/2 Ml Vial) 5 mg IV Q4H PRN PRN PRN Reason: Breakthrough nausea/vomiting Psyllium Hydrophilic Mucilloid (Psyllium 1 Packet) 1 packet PO DAILY PRN PRN PRN Reason: Constipation Senna/Docusate Sodium (Senna/Docusate Sodium 1 Tablet) 2 tablet PO BID PRN PRN PRN Reason: Constipation Last Admin: 06/20/20 10:41 Dose: 2 tablet Documented by: Sodium Chloride (0.9% Saline Lock 10 Ml Syringe) 10 - 40 ml IV UD PRN PRN Reason: SALINE FLUSH Throat Lozenges (Benzocaine/Menthol 1 Lozenge) 1 lozenge MUCOUS MEM Q2H PRN PRN PRN Reason: SORE THROAT Medical Necessity - Tobacco Use Smoking Status: Current every day smoker Tobacco Use: Cigarettes Route of nutrition/ use of supplements: [] Nutritional Intake: [] IV Site: [] Lyons Catheter: [] - Assessment/Plan Antibiotics: [] Assessment/Plan: [] Active and Suspected Problems COVID-19 virus infection (Acute) Hypoxemia (Acute) Pneumonia due to COVID-19 virus (Acute) Suspected chronic obstructive pulmonary disease based on initial evaluation (Suspected) covid with hypoxia - on dex, lovenox 30mg bid. Cont remdesivir. also with covid, improving. On dex. CT neg for PE. D-dimer was 1.5. Sx started 06/07. On 4L. Ok for discharge home if O2 continues to improve, should complete 10 total days of dex, recommend 2 weeks low dose xa inhibitory like xarelto 10mg daily or eliquis 2.5mg bid. Quarantine for 20 days from start of sx 06/07. Will follow as needed
--- NOTE | 2020-06-21 17:59 | PCM.PN.HOSP ---
Patient Problems: Active and Suspected Problems COVID-19 virus infection (Acute) Hypoxemia (Acute) Pneumonia due to COVID-19 virus (Acute) Suspected chronic obstructive pulmonary disease based on initial evaluation (Suspected) Subjective: Doing well, feels better. Oxygen saturations are maintained on 3-1/2 L today. Vitals/I&O's: Vital Signs Temp Pulse Resp BP Pulse Ox 98.2 F 72 18 128/59 H 92 06/21/20 14:30 06/21/20 14:30 06/21/20 14:30 06/21/20 14:30 06/21/20 14:30 Oxygen Flow Rate (L/min) 3.5 Oxygen Delivery Method Nasal Cannula Weight: 136 lb 10.986 oz Body Mass Index (BMI) 25.7 Intake and Output for Last 24 Hours 06/19/20 06/20/20 06/21/20 23:59 23:59 23:59 Intake Total 790 / 790 600 / 600 730 / 730 Output Total 400 / 400 500 / 500 Balance 390 / 390 100 / 100 730 / 730 General: Alert, Oriented x3, Cooperative, No apparent distress HEENT: Atraumatic, PERRLA, EOMI, Normocephalic Oral: Moist Mucosa Neck: Supple, No JVD Lungs: Normal air movement, No rhonchi, No rales, Diminished, Wheezes Cardiovascular: Regular rate, Regular Rhythm, Normal S1, Normal S2, No murmurs Abdomen: Soft, Non Tender, Non-Distended, No Hepato-splenomegaly Extremities: No edema, Capillary Refill Less than 3 Seconds Skin: No rashes, No breakdown Neurological: Neuro grossly intact, Sensory exam intact to light touch and pain Psych/Mental Status: Anxious Microbiology Past 72 Hours 06/17/20 23:00 Sputum, Expectorated/Coughed Gram Stain - Final 06/17/20 23:00 Sputum, Expectorated/Coughed Respiratory Culture - Final Laboratory Results 06/21/20 06:35: WBC 8.0, RBC 4.56, Hgb 12.7, Hct 39.4, MCV 86.4, MCH 27.9, MCHC 32.2, RDW Std Deviation 42.0, RDW Coeff of Silvano 13.3, Plt Count 318, MPV 9.1, Immature Gran % (Auto) 0.700, Neut % (Auto) 82.0 H, Lymph % (Auto) 11.1 L, Hunt % (Auto) 5.6, Eos % (Auto) 0.5, Baso % (Auto) 0.1, Absolute Neuts (auto) 6.6, Absolute Lymphs (auto) 0.89, Nucleated RBC % 0 06/21/20 06:35: Sodium 140, Potassium 3.5, Chloride 107, Carbon Dioxide 27.0, Anion Gap 6, BUN 17, Creatinine 0.57, Estim Creat Clear Calc 34.91, Est GFR (MDRD) Af Amer 133, Est GFR (MDRD) Non-Af 110, BUN/Creatinine Ratio 30.0 H, Glucose 93, Calcium 8.1 L, Total Bilirubin 0.60, AST 31, ALT 27, Alkaline Phosphatase 65, Total Protein 5.8 L, Albumin 2.5 L, Globulin 3.3, Albumin/Globulin Ratio 0.8 L Current Medications Acetaminophen (Acetaminophen 325 Mg Tablet) 650 mg PO Q6H PRN PRN PRN Reason: Pain Score 1-10/Temp > 100.7 F Last Admin: 06/17/20 22:53 Dose: 650 mg Documented by: Al Hydroxide/Mg Hydroxide (Mag Hydrox/Al Hydrox/Simeth 30 Ml Udc) 30 ml PO Q6H PRN PRN PRN Reason: Gastric Burning Albuterol Sulfate (Albuterol Ih 8.5 Gm (Proair) Inhaler (200 Puffs)) 4 - 8 puff INHALATION Q4H PRN PRN PRN Reason: Dyspnea, wheezing Dexamethasone (Dexamethasone 4 Mg Tablet) 6 mg PO DAILY [facility] Stop: 06/26/20 10:01 Last Admin: 06/21/20 09:17 Dose: 6 mg Documented by: Enoxaparin Sodium (Enoxaparin 30 Mg/0.3 Ml Syringe) 30 mg SC BID [facility] Last Admin: 06/21/20 09:19 Dose: 30 mg Documented by: Guaifenesin (Guaifenesin 10 Ml Udc (200mg/10ml)) 20 ml PO Q4H PRN PRN PRN Reason: COUGH Hydralazine HCl (Hydralazine 20 Mg/Ml Vial) 10 mg IV Q4H PRN PRN PRN Reason: SBP > 160 Remdesivir 100 mg/ Sodium (Chloride) 250 mls @ 125 mls/hr IV DAILY [facility]; Protocol Stop: 06/22/20 11:59 Last Infusion: 06/21/20 13:38 Dose: Infused Documented by: Magnesium Hydroxide (Magnesium Hydroxide 30 Ml Udc) 30 ml PO DAILY PRN PRN PRN Reason: Constipation Melatonin (Melatonin 3 Mg Tablet) 3 mg PO QHS PRN PRN PRN Reason: INSOMNIA Last Admin: 06/17/20 22:59 Dose: 3 mg Documented by: Morphine Sulfate (Morphine 2 Mg/Ml Syringe) 2 mg IV Q3H PRN PRN PRN Reason: Pain Score 6-10 Nicotine (Nicotine 14 Mg Patch) 14 mg TD DAILY PRN PRN PRN Reason: Nicotine Craving Nitroglycerin (Nitroglycerin (Inpatient Use) 0.4 Mg Tab.Subl) 0.4 mg SUBLINGUAL Q5M PRN PRN Reason: CARDIAC/CHEST PAIN Ondansetron HCl (Ondansetron 4 Mg/2 Ml Vial) 4 mg IV Q8H PRN PRN PRN Reason: NAUSEA/VOMITING Last Admin: 06/17/20 22:52 Dose: 4 mg Documented by: Oxycodone HCl (Oxycodone 5 Mg Tablet) 5 mg PO Q4H PRN PRN PRN Reason: Pain Score 4-5 Prochlorperazine Edisylate (Prochlorperazine 10 Mg/2 Ml Vial) 5 mg IV Q4H PRN PRN PRN Reason: Breakthrough nausea/vomiting Psyllium Hydrophilic Mucilloid (Psyllium 1 Packet) 1 packet PO DAILY PRN PRN PRN Reason: Constipation Senna/Docusate Sodium (Senna/Docusate Sodium 1 Tablet) 2 tablet PO BID PRN PRN PRN Reason: Constipation Last Admin: 06/20/20 10:41 Dose: 2 tablet Documented by: Sodium Chloride (0.9% Saline Lock 10 Ml Syringe) 10 - 40 ml IV UD PRN PRN Reason: SALINE FLUSH Throat Lozenges (Benzocaine/Menthol 1 Lozenge) 1 lozenge MUCOUS MEM Q2H PRN PRN PRN Reason: SORE THROAT STROKE Vital Signs/Narrative: Vital Signs Temp Pulse Resp BP Pulse Ox 06/21/20 14:30 98.2 F 72 18 128/59 H 92 Medical Necessity - Tobacco Use Smoking Status: Current every day smoker Tobacco Use: Cigarettes Assessment/Plan All Active Problems COVID-19 virus infection (Acute) Hypoxemia (Acute) Pneumonia due to COVID-19 virus (Acute) 1. Acute hypoxic respiratory failure secondary to COVID-19 pneumonia/possible COPD -She states that she is never been diagnosed with COPD however she does have wheezing and has a history of smoking. -Continue with remdesivir and steroids -We will check an amatory pulse ox in the morning and can discuss discharge planning if less than 6 L 2. HTN/HLD -Blood pressures controlled -Continue with his home blood pressure medications -Continue with statin therapy 3. Hypothyroidism -Stable -Continue Synthroid DVT: Lovenox Inpatient E&M: 43901 Subs Hosp L2
[2020-06-21 20:30] VITALS: BP 133/68; PULSE 77; RESP 18; TEMP 36.7; O2SAT 91
[2020-06-22] VITALS (9 sets, daily range): BP systolic 110–129; BP diastolic 60–74; PULSE 72–86; RESP 16–20; TEMP 36.7–37.1; O2SAT 84–94
--- NOTE | 2020-06-22 10:28 | PN_ITS ---
Patient Problems: Active and Suspected Problems COVID-19 virus infection (Acute) Hypoxemia (Acute) Pneumonia due to COVID-19 virus (Acute) Suspected chronic obstructive pulmonary disease based on initial evaluation (Suspected) Subjective: Doing well, still on 3 to 5 L nasal cannula to maintain oxygenation. Her amatory pulse ox was okay, she did need 6 L to maintain an oxygen sat of 92% Vitals/I&O's: Vital Signs Temp Pulse Resp BP Pulse Ox 98.7 F 74 18 129/74 H 86 06/22/20 03:43 06/22/20 03:43 06/22/20 03:43 06/22/20 03:43 06/22/20 09:23 Oxygen Flow Rate (L/min) [ 6 AMBULATION with Oxygen] Oxygen Flow Rate (L/min) 5 Oxygen Delivery Method Nasal Cannula Weight: 136 lb 10.986 oz Body Mass Index (BMI) 25.7 Intake and Output for Last 24 Hours 06/20/20 06/21/20 06/22/20 23:59 23:59 23:59 Intake Total 600 / 600 730 / 730 Output Total 500 / 500 Balance 100 / 100 730 / 730 General: Alert, Oriented x3, Cooperative, No apparent distress HEENT: Atraumatic, PERRLA, EOMI, Normocephalic Oral: Moist Mucosa Neck: Supple, No JVD Lungs: Normal air movement, No rhonchi, mild Rales left lower lobe, Diminished, no wheezes Cardiovascular: Regular rate, Regular Rhythm, Normal S1, Normal S2, No murmurs Abdomen: Soft, Non Tender, Non-Distended, No Hepato-splenomegaly Extremities: No edema, Capillary Refill Less than 3 Seconds Skin: No rashes, No breakdown Neurological: Neuro grossly intact, Sensory exam intact to light touch and pain Psych/Mental Status: Anxious Microbiology Past 72 Hours 06/17/20 23:00 Sputum, Expectorated/Coughed Gram Stain - Final 06/17/20 23:00 Sputum, Expectorated/Coughed Respiratory Culture - Final Current Medications Acetaminophen (Acetaminophen 325 Mg Tablet) 650 mg PO Q6H PRN PRN PRN Reason: Pain Score 1-10/Temp > 100.7 F Last Admin: 06/17/20 22:53 Dose: 650 mg Documented by: Al Hydroxide/Mg Hydroxide (Mag Hydrox/Al Hydrox/Simeth 30 Ml Udc) 30 ml PO Q6H PRN PRN PRN Reason: Gastric Burning Albuterol Sulfate (Albuterol Ih 8.5 Gm (Proair) Inhaler (200 Puffs)) 4 - 8 puff INHALATION Q4H PRN PRN PRN Reason: Dyspnea, wheezing Dexamethasone (Dexamethasone 4 Mg Tablet) 6 mg PO DAILY [facility] Stop: 06/26/20 10:01 Last Admin: 06/21/20 09:17 Dose: 6 mg Documented by: Enoxaparin Sodium (Enoxaparin 30 Mg/0.3 Ml Syringe) 30 mg SC BID [facility] Last Admin: 06/21/20 23:13 Dose: 30 mg Documented by: Guaifenesin (Guaifenesin 10 Ml Udc (200mg/10ml)) 20 ml PO Q4H PRN PRN PRN Reason: COUGH Hydralazine HCl (Hydralazine 20 Mg/Ml Vial) 10 mg IV Q4H PRN PRN PRN Reason: SBP > 160 Remdesivir 100 mg/ Sodium (Chloride) 250 mls @ 125 mls/hr IV DAILY [facility]; Protocol Stop: 06/22/20 11:59 Last Infusion: 06/21/20 13:38 Dose: Infused Documented by: Magnesium Hydroxide (Magnesium Hydroxide 30 Ml Udc) 30 ml PO DAILY PRN PRN PRN Reason: Constipation Melatonin (Melatonin 3 Mg Tablet) 3 mg PO QHS PRN PRN PRN Reason: INSOMNIA Last Admin: 06/17/20 22:59 Dose: 3 mg Documented by: Morphine Sulfate (Morphine 2 Mg/Ml Syringe) 2 mg IV Q3H PRN PRN PRN Reason: Pain Score 6-10 Nicotine (Nicotine 14 Mg Patch) 14 mg TD DAILY PRN PRN PRN Reason: Nicotine Craving Nitroglycerin (Nitroglycerin (Inpatient Use) 0.4 Mg Tab.Subl) 0.4 mg SUBLINGUAL Q5M PRN PRN Reason: CARDIAC/CHEST PAIN Ondansetron HCl (Ondansetron 4 Mg/2 Ml Vial) 4 mg IV Q8H PRN PRN PRN Reason: NAUSEA/VOMITING Last Admin: 06/17/20 22:52 Dose: 4 mg Documented by: Oxycodone HCl (Oxycodone 5 Mg Tablet) 5 mg PO Q4H PRN PRN PRN Reason: Pain Score 4-5 Prochlorperazine Edisylate (Prochlorperazine 10 Mg/2 Ml Vial) 5 mg IV Q4H PRN PRN PRN Reason: Breakthrough nausea/vomiting Psyllium Hydrophilic Mucilloid (Psyllium 1 Packet) 1 packet PO DAILY PRN PRN PRN Reason: Constipation Senna/Docusate Sodium (Senna/Docusate Sodium 1 Tablet) 2 tablet PO BID PRN PRN PRN Reason: Constipation Last Admin: 06/20/20 10:41 Dose: 2 tablet Documented by: Sodium Chloride (0.9% Saline Lock 10 Ml Syringe) 10 - 40 ml IV UD PRN PRN Reason: SALINE FLUSH Throat Lozenges (Benzocaine/Menthol 1 Lozenge) 1 lozenge MUCOUS MEM Q2H PRN PRN PRN Reason: SORE THROAT STROKE Vital Signs/Narrative: Vital Signs Pulse Ox Pulse Ox Pulse Ox Pulse Ox 06/22/20 09:23 84 92 86 06/22/20 08:02 84 Medical Necessity - Tobacco Use Smoking Status: Current every day smoker Tobacco Use: Cigarettes Assessment/Plan All Active Problems COVID-19 virus infection (Acute) Hypoxemia (Acute) Pneumonia due to COVID-19 virus (Acute) 1. Acute hypoxic respiratory failure secondary to COVID-19 pneumonia/possible COPD -She states that she is never been diagnosed with COPD however she does have wheezing and has a history of smoking. -Continue with remdesivir and steroids -Ambulatory pulse ox this morning required 6 L to maintain oxygen sat of 92%. She does have wheezing and she does have albuterol inhaler available however she has been using it therefore will schedule duo nebs and see if that helps her for today into tomorrow and see if we get her oxygen down in the a.m. -Given the rales give her a dose of Lasix in the morning and see if that helps 2. HTN/HLD -Blood pressures controlled -Continue with his home blood pressure medications -Continue with statin therapy 3. Hypothyroidism -Stable -Continue Synthroid DVT: Lovenox Inpatient E&M: [id number] [facility] Hosp L2
[2020-06-22] MEDS: Enoxaparin 30 MG/0.3 ML Syringe SC ×2 (10:57→20:45)
[2020-06-22] MEDS: dexAMETHasone 4 MG Tablet 6 MG PO (10:57)
[2020-06-22] MEDS: Ipratropium/Albuterol Sulfate 3 ML AMPUL.NEB INHALATION ×2 (15:01→19:24)
[2020-06-23] VITALS (7 sets, daily range): BP systolic 114–131; BP diastolic 58–67; PULSE 69–88; RESP 16–20; TEMP 36.7–36.8; O2SAT 87–98
[2020-06-23] MEDS: Ipratropium/Albuterol Sulfate 3 ML AMPUL.NEB INHALATION ×2 (07:01→11:03)
[2020-06-23] MEDS: Enoxaparin 30 MG/0.3 ML Syringe SC (08:36)
[2020-06-23] MEDS: dexAMETHasone 4 MG Tablet 6 MG PO (08:37)
--- NOTE | 2020-06-23 10:54 | CASEMGMT ---
Addendum entered by Hetal Melo 06/23/20 12:30: Updated O2 script faxed to [facility] at this time Original Note: MERRY OKEEFE NOTE: Home O2 testing has been completed. Pt qualifies for O2 @ 3 L/M @ rest and 5 L/M at rest. Current home O2 orders are for 2 L/M. Will obtain updated O2 script and fax to [facility] when available. Call placed to pt in her room at this time. She states her will be picking her up at discharge and she will ask him to bring in the portable O2 tank when he comes. She denies having any concerns w/going home @ dc and denies further needs. Meka BURGESS RN, CM
--- NOTE | 2020-06-23 12:18 | PCM.DC ---
- Discharge Diagnoses Current Active Problems: Current Active and Chronic Problems COVID-19 virus infection (Acute) Hypoxemia (Acute) Pneumonia due to COVID-19 virus (Acute) Tobacco use (Chronic) HTN (hypertension) (Chronic) HLD (hyperlipidemia) (Chronic) Hypothyroidism (Chronic) You will use the following diet at home:: Regular Your food should be the consistency of: Regular Your liquids should be the consistency of: Regular/Thin Discharge Activity: Return to Normal Activity Call your doctor if you observe: Fever of 101 or Higher, Shortness of breath, Dizziness, Fainting spells, Swelling in the ankles, Chest pain, Increased palpitations (irregular heartbeat) Allergies/Adverse Reactions: Allergies No Known Allergies Allergy (Verified 06/17/20 15:05) Medications to take at Discharge Aspirin E.C. [Ecotrin] 325 mg PO DAILY@0800 02/08/17 Atenolol [Tenormin (beta candelaria)] 25 mg PO DAILY 02/08/17 Atorvastatin Calcium [Lipitor] 20 mg PO DAILY 02/08/17 Levothyroxine [Synthroid] 88 mcg PO DAILY 02/08/17 Apixaban [Eliquis] 2.5 mg PO BID #28 tab 06/23/20 Dexamethasone [Decadron] 6 mg PO DAILY #9 tab 06/23/20 The following prescriptions were given: Dexamethasone [Decadron] 6 mg PO DAILY #9 tab Transmission Status: Pending to [facility] Apixaban [Eliquis] 2.5 mg PO BID #28 tab Transmission Status: Pending to [facility] Primary Care Physician: Paulette Grimes MD [Primary Care Provider] - Please follow up with your Primary Care Physician in: 3-5 days Test Results: Test results from this visit will be discussed in further detail at your follow-up appointment, if applicable.
--- NOTE | 2020-06-23 12:20 | DS.PCM_ITS ---
Discharge Date and Diagnosis - Problem List Patient Problems: Active and Suspected Problems COVID-19 virus infection (Acute) Hypoxemia (Acute) Pneumonia due to COVID-19 virus (Acute) Suspected chronic obstructive pulmonary disease based on initial evaluation (Suspected) Date of Admission: 06/17/20 Date of Discharge: 06/23/20 - Primary Discharge Diagnosis Acute Problems: Active Problems COVID-19 virus infection (Acute) Hypoxemia (Acute) Pneumonia due to COVID-19 virus (Acute) Suspected Problems: Suspected Problems Suspected chronic obstructive pulmonary disease based on initial evaluation (S uspected) - Secondary Discharge Diagnosis Chronic Problems: Chronic Problems Tobacco use (Chronic) HTN (hypertension) (Chronic) HLD (hyperlipidemia) (Chronic) Hypothyroidism (Chronic) Hospital Course and Treatment Imaging Results: Clinical Impression(s) from Imaging Studies Chest X-Ray 06/17/20 16:00 IMPRESSION: Stable bilateral hazy opacities suspicious for pneumonia. Consider typical and atypical etiologies. Electronically Signed: Annette Ford MD at 16:42 EST Tel , Service support , Chest CTA 06/17/20 17:35 IMPRESSION: 1. No pulmonary embolism or arterial dissection. 2. Diffuse groundglass opacities suspicious for Covid pneumonia. Electronically Signed: Annette Ford MD at 19:02 EST Tel , Service support , Consults: ID Operations: None Procedures: None Summary of Care Provided: Per HPI: The patient is a 74 y/o F w/ PMHx: Suspected underlying chronic COPD, Tobacco use, HTN, HLD, Hypothyroidism who presents to the [facility] ED on 06/17/20 with history of onset COVID type symptoms including fever, chills, body aches, diarrhea, cough and dyspnea with + COVID testing ~ 9 days prior with lessening diarrhea and resolution of her fever x 4-5 days; however, she notes her oxygenation has been steadily worsening with recent ED presentation 2 days prior with discharge on 2L NC as well as steroids but despite this she has worsened with oxygenation at home in the 80s on the 2L NC prompting ED return. She notes her is also ill but less severe and his symptoms started just prior to hers. Work-up in the ED included T 98, heart 70, BP 136/70, respiratory rate 18, initially 85% on 2 L nasal cannula with improvement to 94% on 5 L nasal cannula, CBC with WC 6.1, hemoglobin 14, platelet 272 with lymphopenia, coags with PT 13.4, INR 1.1, PTT 25.3, D-dimer requested and discussed with ED physician and returned 1.50 with CTPA obtained on route to [facility] floor, ABG with pH 7.46, PCO2 32.8, PO2 86 on 5 L nasal cannula, CMP not marked appearing, EKG with SR without acute evidence of ischemia, CXR with stable BL hazy opacities consistent with COVID PNA, CTPA as noted pending upon admission. Hospital Course: 1. Acute hypoxic respiratory failure secondary to COVID-19 pneumonia/possible COPD -She states that she is never been diagnosed with COPD however she does have wheezing and has a history of smoking. -Continue with remdesivir and steroids -Ambulatory pulse ox this morning required 5 L to maintain oxygen sat of 93%. She does feel better with DuoNeb inhaler and she did receive a dose of Lasix this morning. I did discuss with her that she has continued Rales and that Lasix could be beneficial however she refused to take any new medications. She is willing to take Decadron and I hope she will be willing to take Eliquis given her elevated D-dimer. I discussed with her the plan for discharge today and she expressed understanding of the risk and benefits of going home and would like to go home today. She is to resume all of her previous home medications. I discussed with her that she needs to follow-up with her primary care doctor in 3 to 5 days for further evaluation. Given the wheezing that she did have on exam she may benefit from an outpatient inhaler as well as pulmonary function tests to determine whether or not she does actually have COPD. 2. HTN/HLD -Blood pressures controlled -Continue with his home blood pressure medications -Continue with statin therapy 3. Hypothyroidism -Stable -Continue Synthroid Patient Problems: Active and Suspected Problems COVID-19 virus infection (Acute) Hypoxemia (Acute) Pneumonia due to COVID-19 virus (Acute) Suspected chronic obstructive pulmonary disease based on initial evaluation (Suspected) - Physical Exam Vitals/I&O's: Vital Signs Temp Pulse Resp BP Pulse Ox 98.0 F 83 20 H 118/61 87 06/23/20 08:34 06/23/20 11:03 06/23/20 11:03 06/23/20 08:34 06/23/20 10:43 Oxygen Flow Rate (L/min) [ 5 AMBULATION with Oxygen] Oxygen Flow Rate (L/min) 3 Oxygen Delivery Method Nasal Cannula Weight: 134 lb 7.712 oz Body Mass Index (BMI) 25.7 Intake and Output for Last 24 Hours 06/21/20 06/22/20 06/23/20 23:59 23:59 23:59 Intake Total 730 / 730 450 / 690 240 / 240 Balance 730 / 730 450 / 690 240 / 240 General: Alert, Oriented x3, Cooperative, No apparent distress HEENT: Atraumatic, PERRLA, EOMI, Normocephalic Oral: Moist Mucosa Neck: Supple, No JVD Lungs: Normal air movement, No rhonchi, mild Rales left lower lobe, Diminished, no wheezes Cardiovascular: Regular rate, Regular Rhythm, Normal S1, Normal S2, No murmurs Abdomen: Soft, Non Tender, Non-Distended, No Hepato-splenomegaly Extremities: No edema, Capillary Refill Less than 3 Seconds Skin: No rashes, No breakdown Neurological: Neuro grossly intact, Sensory exam intact to light touch and pain Psych/Mental Status: Anxious Microbiology Past 72 Hours 06/17/20 23:00 Sputum, Expectorated/Coughed Gram Stain - Final 06/17/20 23:00 Sputum, Expectorated/Coughed Respiratory Culture - Final Current Medications Acetaminophen (Acetaminophen 325 Mg Tablet) 650 mg PO Q6H PRN PRN PRN Reason: Pain Score 1-10/Temp > 100.7 F Last Admin: 06/17/20 22:53 Dose: 650 mg Documented by: Al Hydroxide/Mg Hydroxide (Mag Hydrox/Al Hydrox/Simeth 30 Ml Udc) 30 ml PO Q6H PRN PRN PRN Reason: Gastric Burning Albuterol Sulfate (Albuterol Ih 8.5 Gm (Proair) Inhaler (200 Puffs)) 4 - 8 puff INHALATION Q4H PRN PRN PRN Reason: Dyspnea, wheezing Albuterol/Ipratropium (Ipratropium/Albuterol Sulfate 3 Ml Ampul.Neb) 3 ml INHALATION Q4HWA.RT ANA Last Admin: 06/23/20 11:03 Dose: 3 ml Documented by: Dexamethasone (Dexamethasone 4 Mg Tablet) 6 mg PO DAILY [facility] Stop: 06/26/20 10:01 Last Admin: 06/23/20 08:37 Dose: 6 mg Documented by: Enoxaparin Sodium (Enoxaparin 30 Mg/0.3 Ml Syringe) 30 mg SC BID [facility] Last Admin: 06/23/20 08:36 Dose: 30 mg Documented by: Guaifenesin (Guaifenesin 10 Ml Udc (200mg/10ml)) 20 ml PO Q4H PRN PRN PRN Reason: COUGH Hydralazine HCl (Hydralazine 20 Mg/Ml Vial) 10 mg IV Q4H PRN PRN PRN Reason: SBP > 160 Magnesium Hydroxide (Magnesium Hydroxide 30 Ml Udc) 30 ml PO DAILY PRN PRN PRN Reason: Constipation Melatonin (Melatonin 3 Mg Tablet) 3 mg PO QHS PRN PRN PRN Reason: INSOMNIA Last Admin: 06/17/20 22:59 Dose: 3 mg Documented by: Morphine Sulfate (Morphine 2 Mg/Ml Syringe) 2 mg IV Q3H PRN PRN PRN Reason: Pain Score 6-10 Nicotine (Nicotine 14 Mg Patch) 14 mg TD DAILY PRN PRN PRN Reason: Nicotine Craving Nitroglycerin (Nitroglycerin (Inpatient Use) 0.4 Mg Tab.Subl) 0.4 mg SUBLINGUAL Q5M PRN PRN Reason: CARDIAC/CHEST PAIN Ondansetron HCl (Ondansetron 4 Mg/2 Ml Vial) 4 mg IV Q8H PRN PRN PRN Reason: NAUSEA/VOMITING Last Admin: 06/17/20 22:52 Dose: 4 mg Documented by: Oxycodone HCl (Oxycodone 5 Mg Tablet) 5 mg PO Q4H PRN PRN PRN Reason: Pain Score 4-5 Prochlorperazine Edisylate (Prochlorperazine 10 Mg/2 Ml Vial) 5 mg IV Q4H PRN PRN PRN Reason: Breakthrough nausea/vomiting Psyllium Hydrophilic Mucilloid (Psyllium 1 Packet) 1 packet PO DAILY PRN PRN PRN Reason: Constipation Senna/Docusate Sodium (Senna/Docusate Sodium 1 Tablet) 2 tablet PO BID PRN PRN PRN Reason: Constipation Last Admin: 06/20/20 10:41 Dose: 2 tablet Documented by: Sodium Chloride (0.9% Saline Lock 10 Ml Syringe) 10 - 40 ml IV UD PRN PRN Reason: SALINE FLUSH Throat Lozenges (Benzocaine/Menthol 1 Lozenge) 1 lozenge MUCOUS MEM Q2H PRN PRN PRN Reason: SORE THROAT Discharge Activity: Return to Normal Activity Call your doctor if you observe: Fever of 101 or Higher, Shortness of breath, Dizziness, Fainting spells, Swelling in the ankles, Chest pain, Increased palpitations (irregular heartbeat) Home Medications: Medications to take at Discharge Aspirin E.C. [Ecotrin] 325 mg PO DAILY@0800 02/08/17 Atenolol [Tenormin (beta candelaria)] 25 mg PO DAILY 02/08/17 Atorvastatin Calcium [Lipitor] 20 mg PO DAILY 02/08/17 Levothyroxine [Synthroid] 88 mcg PO DAILY 02/08/17 Apixaban [Eliquis] 2.5 mg PO BID #28 tab 06/23/20 Dexamethasone [Decadron] 6 mg PO DAILY #9 tab 06/23/20 Following Prescriptions Were Given to Patient: Dexamethasone [Decadron] 6 mg PO DAILY #9 tab Transmission Status: Pending to [facility] Apixaban [Eliquis] 2.5 mg PO BID #28 tab Transmission Status: Pending to [facility] Primary Care Physician: Paulette Grimes MD [Primary Care Provider] - Please follow up with your Primary Care Physician in: 3-5 days Patient Instructions: Coronavirus Disease 2019 (COVID-19): Caring for Yourself or Others, Coronavirus Disease 2019 (COVID-19): Overview Disposition: Home Minutes spent on discharge:: 35 Patient Condition:: Stable Medical Necessity - Tobacco Use Smoking Status: Current every day smoker Tobacco Use: Cigarettes Meaningful Use Info Meaningful Use Diagnoses (Choose all that apply): None applicable Inpatient E&M: 54927 Disch Hosp
--- NOTE | 2020-06-24 10:06 | CASEMGMT ---
[facility] Discharge F/U Phone Call Discharge date: 06/23/2020 Call date: 06/24/2020 Call time: [phone] Admission dx: COVID pna, Hypoxia Pt states has been doing 'pretty good so far' since discharge. Pt states has home oxygen set up and has not had to turn it up at all. Pt states has not had any SOB or fevers. Pt speaks in full sentences at this time. Pt states she has her meds and is taking them. Pt states has a decent appetite. Pt states will f/u with PCP next week. Pt states no suggestions for [facility] and states 'Everybody was so nice.' Pt voices no further questions/concerns/needs at this time. SStaten MERRY OKEEFE
== END 2020-06-23 14:56 | disposition home or self-care (01) | DRG 177 ==
LOC: ED 17:40 → MS2 17:48
PROVIDERS: Internal Medicine; Admitting Provider Family Medicine; Emergency Provider Emergency Medicine; PCP Internal Medicine; Visit Provider Family Medicine
DX: U07.1 COVID-19 (principal); J12.89 Other viral pneumonia; J96.01 Acute respiratory failure with hypoxia; J44.0 Chronic obstructive pulmonary disease with (acute) lower respiratory infection; I10 Essential (primary) hypertension; E78.5 Hyperlipidemia, unspecified; E03.9 Hypothyroidism, unspecified; F17.210 Nicotine dependence, cigarettes, uncomplicated; Z79.82 Long term (current) use of aspirin; Z79.890 Hormone replacement therapy; Z79.899 Other long term (current) drug therapy
CPT/HCPCS: 36415; 36600; 71045; 71275; 80053; 82728; 82803; 83615; 83735; 84145; 84484; 85025; 85379; 85610; 85730; 86140; 86850; 86900; 86901; 87070; 87205; 87449; 87633; 93005; 94640; 96374; 99251; 99284; 99285; 99406; J7050; Q9967; G0463; J2405

== ENCOUNTER 2020-09-09 12:00 | Outpatient (RCR) | payer MEDICARE, SELFPAY ==
[2020-06-18 13:09] VITALS: BMI 25.7
[2020-09-09] MEDS: COVID-19 VACC, MRNA(PFIZER)/PF 30 MCG/0.3 ML SYRINGE IM (10:05)
[2020-09-30] MEDS: COVID-19 VACC, MRNA(PFIZER)/PF 30 MCG/0.3 ML SYRINGE IM (09:53)
== END 2020-12-07 23:59 ==
LOC: IMMUN 12:00
PROVIDERS: PCP Internal Medicine; Visit Provider Family Medicine
DX: Z23 Encounter for immunization (principal)
CPT/HCPCS: 0001A; 0002A; 91300

== ENCOUNTER → 2022-10-30 | Outpatient (CLI) | payer MEDICARE, SELFPAY ==
--- NOTE | 2022-10-30 16:48 | CT_ITS ---
STUDY: CT ORBITS WITH CONTRAST REASON FOR EXAM: Female, 77 years old. STAT RIGHT EYE CELLULITIS RADIATION DOSAGE (If Supplied By Facility): CTDIvol = ( 29.38 ) mGy, DLP = ( 444.61 ) mGycm TECHNIQUE: The patient was scanned in a multi detector CT scanner. Transaxial imaging was performed following the intravenous administration of 100ML OF ISOVUE 300. Sagittal and coronal images were reconstructed. Individualized dose optimization techniques were used for this CT. COMPARISON: None. FINDINGS: Prominent enhancing right lacrimal gland compared to the left. No abscess noted. Normal globes. Normal intraconal spaces. Normal optic nerve sheath complex. Normal bilateral extraocular muscles. Normal lacrimal glands. Normal bilateral medial and inferior orbital aguila. Normal bilateral maxillary bones. Normal bilateral frontozygomatic arches. Normal bilateral zygomatic temporal arches. Normal frontal sinus. Normal ethmoidal sinuses. Normal maxillary sinuses. Normal sphenoid sinuses. Normal soft tissue structures. There is no demonstrated abnormal enhancement. CT/Orb Sella Post Fossa Ear W/CON IMPRESSION: No significant preseptal or retro-orbital cellulitis or abscess.. Consider right dacryoadenitis. Electronically Signed: Braden Fuentes MD at 18:20 EDT ,
[2022-10-30 17:10] LABS: CREATININE FINGERSTICK < 0.9 mg/dL (0.55-1.02); EGFR FINGERSTICK > 60.0000 mL/min (>60)
== END | disposition home or self-care (01) ==
LOC: CT 16:37
PROVIDERS: PCP Internal Medicine; Referring Provider Ophthalmology; Visit Provider Ophthalmology
DX: L03.213 Periorbital cellulitis (principal)
CPT/HCPCS: 70481; Q9967